=== PATIENT | female | born 1955 | race Caucasian/White ===

== ENCOUNTER 2017-02-21 11:19 | Observation (INO) | payer BC, MEDICARE ==
[2017-02-21 11:33] VITALS: TEMP 98.3; O2SAT 97
--- NOTE | 2017-02-21 13:11 | ED PDOC ---
HPI: General Adult Time Seen by Provider: 02/21/17 12:36 Chief Complaint (Nursing): GI Problem History Per: Patient History/Exam Limitations: no limitations Onset/Duration Of Symptoms: Sudden Onset (today) Current Symptoms Are (Timing): Better Severity: Moderate Additional History Per: Patient Additional Complaint(s): pmd tahir had brbpr Past Medical History Reviewed: Historical Data, Nursing Documentation, Vital Signs Vital Signs: Last Vital Signs Temp 98.3 F 02/21/17 11:33 Pulse 100 H 02/21/17 11:33 Resp 20 02/21/17 11:33 BP 140/83 02/21/17 11:33 Pulse Ox 97 02/21/17 13:13 - Medical History PMH: End Stage Renal Disease - Family History Family History: States: Unknown Family Hx - Living Arrangements Living Arrangements: With Family - Home Medications Home Medications: Ambulatory Orders Medication Instructions Recorded Allopurinol [Zyloprim] 100 mg PO DAILY 02/21/17 Alprazolam [Xanax] 0.25 mg PO Q12H PRN 02/21/17 Diltiazem HCl [Diltiazem ER] 120 mg PO DAILY 02/21/17 Esomeprazole Magnesium [Nexium] 40 mg PO DAILY PRN 02/21/17 Ferric Citrate [Auryxia] 2 tab PO TID 02/21/17 Labetalol [Trandate] 200 mg PO DAILY 02/21/17 Losartan [Cozaar] 100 mg PO QPM 02/21/17 Megestrol Acetate [Megace Es] 5 ml PO DAILY 02/21/17 [id number] Ethyl Esters 1 GM 2 gm PO BID 02/21/17 [Lovaza] Paricalcitol [Zemplar] 1 mcg PO DAILY 02/21/17 Promethazine HCl/Codeine 10 ml PO Q8H PRN 02/21/17 [Prometh-Codein 6.25-10 mg/5 ml] Rosuvastatin Calcium [Crestor] 5 mg PO Q48H 02/21/17 Sevelamer Carbonate [Renvela] 2,400 mg PO TID 02/21/17 - Allergies Allergies/Adverse Reactions: Allergies Allergy/AdvReac Type Severity Reaction Status Date / Time No Known Allergies Allergy Verified 02/21/17 12:44 Review of Systems ROS Statement: Except As Marked, All Systems Reviewed And Found Negative Constitutional: Negative for: Fever, Chills Cardiovascular: Negative for: Chest Pain, Palpitations Respiratory: Negative for: Cough, Shortness of Breath Gastrointestinal: Positive for: Hematochezia. Negative for: Nausea, Vomiting, Abdominal Pain, Melena Genitourinary Female: Negative for: Dysuria Neurological: Negative for: Weakness, Numbness Physical Exam - Reviewed Nursing Documentation Reviewed: Yes Vital Signs Reviewed: Yes - Physical Exam Appears: Positive for: Well Head Exam: Positive for: ATRAUMATIC, NORMAL INSPECTION, NORMOCEPHALIC Eye Exam: Positive for: Normal appearance, EOMI, PERRL Neck: Positive for: Normal, Painless ROM, Supple Cardiovascular/Chest: Positive for: Regular Rate, Rhythm Respiratory: Positive for: Normal Breath Sounds. Negative for: Decreased Breath Sounds, Accessory Muscle Use, Crackles Gastrointestinal/Abdominal: Positive for: Normal Exam, Bowel Sounds, Soft, Other (peritoneal dialysis catheter). Negative for: Tenderness Rectal: Positive for: Rectal Tone Is: (nml), Blood Streaked Stool Extremity: Positive for: Normal ROM. Negative for: Tenderness, Pedal Edema Neurologic/Psych: Positive for: Alert, reclamation kettle tender II-XII, Oriented. Negative for: Motor/Sensory Deficits - Laboratory Results Result Diagrams: 02/21/17 13:15 02/21/17 13:15 - ECG O2 Sat by Pulse Oximetry: 97 Disposition - Clinical Impression Clinical Impression: GI bleed - Patient ED Disposition Is Patient to be Admitted: Yes Counseled Patient/Family Regarding: Studies Performed, Diagnosis - Disposition Disposition Time: 14:00 Condition: STABLE - Pt Status Changed To: Hospital Disposition Of: Observation - POA Present On Arrival: None
[2017-02-21 13:33] LABS: BASO # 0.1 K/uL (0.0-0.2); BASO % 0.8 % (0.0-2.0); EOS # 0.2 K/uL (0.0-0.7); EOS % 2.1 % (0.0-4.0); HEMOGLOBIN 8.4 g/dL (12.0-16.0); LYMPH # 3.6 K/uL (1.0-4.3); LYMPH % 36.2 % (20.0-40.0); MEAN CELL VOLUME 98.7 fl (81.0-99.0); MEAN CORPUSCULAR HEMOGLOBIN 32.3 pg (27.0-31.0); MEAN CORPUSCULAR HGB CONC 32.7 g/dL (33.0-37.0); MEAN PLATELET VOLUME 7.7 fl (7.2-11.7); MONO % 10.2 % (0.0-10.0); NEUT % 50.7 % (50.0-75.0); RBC 2.61 Mil/uL (3.80-5.20); RED CELL DISTRIBUTION WIDTH 15.2 % (11.5-14.5); WHITE BLOOD COUNT 9.9 K/uL (4.8-10.8)
[2017-02-21 13:47] LABS: ALB/GLOB RATIO 1.4 (1.0-2.1); ALBUMIN 3.8 g/dL (3.5-5.0); CALCIUM 9.4 mg/dL (8.4-10.2)
[2017-02-21 13:54] LABS: INR 1.1 (0.9-1.2); PARTIAL THROMBOPLASTIN TIME 24.6 Seconds (25.6-37.1); PROTHROMBIN TIME 12.7 Seconds (9.8-13.1)
[2017-02-21 15:24] VITALS: BP 136/75; PULSE 88; RESP 16
== END 2017-02-21 15:32 | disposition left against medical advice (07) ==
LOC: H.ER 11:19 → H.ERHOLD 14:22
PROVIDERS: ADMIT Internal Medicine Pulmonary Disease; ATTEND Internal Medicine Pulmonary Disease
DX: K92.2 Gastrointestinal hemorrhage, unspecified (principal); N18.6 End stage renal disease
CPT/HCPCS: 80053; 85025; 85610; 85730; 86850; 86900; 99284; G0378

== ENCOUNTER 2017-08-29 15:09 | Inpatient (IN) | payer BC, MEDICARE ==
[2017-08-29] MEDS ORDERED: Albuterol 0.083% Inhal Sol (2.5 mg/3 mL) UD INH STA (16:01)
[2017-08-29 16:34] LABS: BASO # 0.1 K/uL (0.0-0.2); BASO % 1.1 % (0.0-2.0); EOS # 0.2 K/uL (0.0-0.7); EOS % 2.1 % (0.0-4.0); LYMPH # 2.5 K/uL (1.0-4.3); MEAN CELL VOLUME 113.4 fl (81.0-99.0); MEAN CORPUSCULAR HEMOGLOBIN 37.6 pg (27.0-31.0); MEAN CORPUSCULAR HGB CONC 33.2 g/dL (33.0-37.0); MEAN PLATELET VOLUME 8.6 fl (7.2-11.7); MONO % 9.7 % (0.0-10.0); NEUT # 6.9 K/uL (1.8-7.0); NEUT % 64.1 % (50.0-75.0); NRBC % 0.1 % (0.0-0.0); RBC 1.86 Mil/uL (3.80-5.20); RED CELL DISTRIBUTION WIDTH 16.1 % (11.5-14.5); WHITE BLOOD COUNT 10.8 K/uL (4.8-10.8)
--- NOTE | 2017-08-29 16:34 | ED PDOC ---
HPI: SOB/CHF/COPD Time Seen by Provider: 08/29/17 15:35 Chief Complaint (Nursing): Shortness Of Breath History Per: Patient, Family (This is 62 yo female who is referred to the ER by Dr. Chamberlain because of persistent cough. According to her with daughter, she has been having persistent for as long as one year. There is no reports of fever or chills or production of phlegm. The cough does not appear to be related to position or fever. ) History/Exam Limitations: no limitations Onset/Duration Of Symptoms: Gradual Current Symptoms Are (Timing): Still Present Quality: Tightness Exacerbating Factor(s): Exertion Current Respiratory Medications: See Home Med List Past Medical History Reviewed: Historical Data, Nursing Documentation, Vital Signs - Medical History PMH: Asthma, HTN, End Stage Renal Disease (on peritoneal dialysis) - Surgical History Other surgeries: breast reduction, family donated transplant recipient - Family History Family History: States: No Known Family Hx - Living Arrangements Living Arrangements: With Family - Social History Current smoker - smoking cessation education provided: No Ex-Smoker (has not smoked in the last 12 months): No Alcohol: None Drugs: Denies - Immunization History Hx Influenza Vaccination: Yes Hx Pneumococcal Vaccination: Yes - Home Medications Home Medications: Ambulatory Orders Medication Instructions Recorded Allopurinol [Zyloprim] 100 mg PO DAILY 02/21/17 Alprazolam [Xanax] 0.25 mg PO Q12H PRN 02/21/17 Diltiazem HCl [Diltiazem ER] 120 mg PO DAILY 02/21/17 Esomeprazole Magnesium [Nexium] 40 mg PO DAILY PRN 02/21/17 Ferric Citrate [Auryxia] 2 tab PO TID 02/21/17 Labetalol [Trandate] 200 mg PO DAILY 02/21/17 Losartan [Cozaar] 100 mg PO QPM 02/21/17 Megestrol Acetate [Megace Es] 5 ml PO DAILY 02/21/17 [id number] Ethyl Esters 1 GM 2 gm PO BID 02/21/17 [Lovaza] Paricalcitol [Zemplar] 1 mcg PO DAILY 02/21/17 Promethazine HCl/Codeine 10 ml PO Q8H PRN 02/21/17 [Prometh-Codein 6.25-10 mg/5 ml] Rosuvastatin Calcium [Crestor] 5 mg PO Q48H 02/21/17 Sevelamer Carbonate [Renvela] 2,400 mg PO TID 02/21/17 - Allergies Allergies/Adverse Reactions: Allergies Allergy/AdvReac Type Severity Reaction Status Date / Time No Known Allergies Allergy Verified 08/11/17 17:40 Review of Systems ROS Statement: Except As Marked, All Systems Reviewed And Found Negative Constitutional: Positive for: Malaise. Negative for: Fever Cardiovascular: Negative for: Chest Pain Respiratory: Positive for: Cough, Shortness of Breath, SOB with Exertion, Pleuritic Pain. Negative for: Hemoptysis Gastrointestinal: Negative for: Nausea, Vomiting, Abdominal Pain Genitourinary Female: Negative for: Dysuria Neurological: Positive for: Weakness (genralized) Physical Exam - Reviewed Nursing Documentation Reviewed: Yes Vital Signs Reviewed: Yes - Physical Exam Appears: Positive for: Well, Non-toxic, No Acute Distress Head Exam: Positive for: ATRAUMATIC, NORMAL INSPECTION, NORMOCEPHALIC Skin: Positive for: Normal Color Eye Exam: Positive for: Normal appearance ENT: Positive for: Normal ENT Inspection Neck: Positive for: Normal, Painless ROM Cardiovascular/Chest: Positive for: Regular Rate, Rhythm Respiratory: Positive for: Normal Breath Sounds (coughing at the end of deep inspiration). Negative for: Accessory Muscle Use, Respiratory Distress Gastrointestinal/Abdominal: Positive for: Normal Exam, Soft. Negative for: Tenderness Back: Positive for: Normal Inspection Rectal: Positive for: Deferred Extremity: Positive for: Normal ROM Neurologic/Psych: Positive for: Alert, Oriented - Laboratory Results Result Diagrams: 08/29/17 16:25 08/29/17 16:25 - Radiology X-Ray: Viewed By Me, Read By Radiologist X-Ray Interpretation: Infiltrates (RLL) - Progress Re-evaluation Time: 17:59 Condition: Re-examined Medical Decision Making Medical Decision Making: patient found to have more significant anemia, RLL infiltrate and suggestion of fluid overload based on elevated ProBNP. case d/w PMD who states that patient was referred to the ER two weeks ago. BAsed on her findings of pneumonia, will admit patient to hospital for IV antibiotics. Disposition - Clinical Impression Clinical Impression: Pneumonia, Anemia - Patient ED Disposition Is Patient to be Admitted: Yes Doctor Will See Patient In The: Hospital - Disposition Disposition: Transfer of Care Disposition Time: 17:45 Condition: FAIR Forms: [facility] ([place]yan) - Pt Status Changed To: Hospital Disposition Of: Inpatient - Admit Certification Admit to Inpatient:: After my assessment, the patient will require hospitalization for at least two midnights. This is because of the severity of symptoms shown, intensity of services needed, and/or the medical risk in this patient being treated as an outpatient. - POA Present On Arrival: None
[2017-08-29 16:53] LABS: TROPONIN I 0.046 ng/mL (0.00-0.120)
--- NOTE | 2017-08-29 17:10 | RAD ---
HISTORY: cough, short of breath COMPARISON: [id number] TECHNIQUE: Chest PA and lateral FINDINGS: LUNGS: Right lower lobe infiltrate with air bronchograms. Findings likely represent acute pneumonia. PLEURA: No significant pleural effusion identified. No pneumothorax apparent. CARDIOVASCULAR: No radiographic findings to suggest acute or significant cardiovascular disease. OSSEOUS STRUCTURES: No significant abnormalities. VISUALIZED UPPER ABDOMEN: Normal. OTHER FINDINGS: None. IMPRESSION: Right lower lobe infiltrate likely pneumonia. This finding was not apparent previously.
[2017-08-29 17:15] LABS: ALB/GLOB RATIO 1.1 (1.0-2.1); ALBUMIN 3.7 g/dL (3.5-5.0); CALCIUM 10.2 mg/dL (8.4-10.2)
[2017-08-29] MEDS ORDERED: Azithromycin 500 MG in Sodium Chloride 0.9% 250 ML IVPB STA (17:57)
[2017-08-29] MEDS ORDERED: cefTRIAXone IV 1 gm in Dextros 50 ML IVPB ONE (18:30)
[2017-08-29] MEDS ORDERED: Oxycodone/Acetaminophen 5/325 mg Tab PO PRN (22:35)
[2017-08-29] MEDS: EPOETIN ALFA 10,000 UNIT/ML ML SC SCH (23:01)
[2017-08-30] MEDS: Promethazine/Cod 6.25mg-10mg/5ml Syr UD PO PRN ×2 (00:15→20:26)
[2017-08-30 07:46] LABS: BASO % 0.2 % (0.0-2.0); LYMPH # 1.2 K/uL (1.0-4.3); LYMPH % 15.6 % (20.0-40.0); MEAN CELL VOLUME 112.8 fl (81.0-99.0); MEAN CORPUSCULAR HEMOGLOBIN 37.6 pg (27.0-31.0); MEAN CORPUSCULAR HGB CONC 33.3 g/dL (33.0-37.0); MEAN PLATELET VOLUME 8.8 fl (7.2-11.7); MONO # 0.1 K/uL (0.0-0.8); MONO % 1.7 % (0.0-10.0); NEUT # 6.2 K/uL (1.8-7.0); NEUT % 82.5 % (50.0-75.0); NRBC % 0.1 % (0.0-0.0); RBC 1.72 Mil/uL (3.80-5.20); RED CELL DISTRIBUTION WIDTH 15.7 % (11.5-14.5); WHITE BLOOD COUNT 7.5 K/uL (4.8-10.8)
[2017-08-30 08:20] LABS: HEMOGLOBIN 6.5 g/dL (12.0-16.0)
[2017-08-30 08:32] LABS: CALCIUM 10.4 mg/dL (8.4-10.2)
[2017-08-30] MEDS: Pantoprazole 40 mg EC Tab PO SCH (08:51)
[2017-08-30] MEDS: Omega-3-Acid Ethyl Esters 1 GM Cap PO SCH ×2 (08:51→17:01)
[2017-08-30] MEDS: diltiaZEM 120 mg/24 Hours CD Cap PO SCH (08:52)
[2017-08-30] MEDS: Multivitamin Vitamin B Complex (Nephro-Vite) Tab PO SCH (08:52)
[2017-08-30] MEDS ORDERED: DILTIAZEM HCL 120 MG PO SCH (09:00)
[2017-08-30 11:05] LABS: BASO % 0.1 % (0.0-2.0); HEMOGLOBIN 6.9 g/dL (12.0-16.0); LYMPH # 1.3 K/uL (1.0-4.3); LYMPH % 13.1 % (20.0-40.0); MEAN CELL VOLUME 112.3 fl (81.0-99.0); MEAN CORPUSCULAR HEMOGLOBIN 38.1 pg (27.0-31.0); MEAN CORPUSCULAR HGB CONC 33.9 g/dL (33.0-37.0); MEAN PLATELET VOLUME 8.3 fl (7.2-11.7); MONO # 0.2 K/uL (0.0-0.8); MONO % 2.4 % (0.0-10.0); NEUT # 8.1 K/uL (1.8-7.0); NEUT % 84.4 % (50.0-75.0); NRBC % 0.1 % (0.0-0.0); RBC 1.8 Mil/uL (3.80-5.20); RED CELL DISTRIBUTION WIDTH 15.5 % (11.5-14.5); WHITE BLOOD COUNT 9.6 K/uL (4.8-10.8)
[2017-08-30 11:19] LABS: IRON 147 ug/dL (37-170)
[2017-08-30 11:28] LABS: TOTAL IRON BINDING CAPACITY 211 ug/dL (250-450)
[2017-08-30 11:35] LABS: % IRON SATURATION 70 % (20-55)
[2017-08-30] MEDS: Azithromycin 500 MG in Sodium Chloride 0.9% 250 ML IVPB SCH (11:54)
--- NOTE | 2017-08-30 12:06 | CARD ---
APPROVED REPORT EKG Measurement Heart [id number] <Conclusion> Too much artefact Please repeat
--- NOTE | 2017-08-30 12:40 | HP ---
HISTORY OF PRESENT ILLNESS: Ms. Roberts is a 62-year-old female who was admitted via the emergency room because of cough, back pain, shortness of breath, exercise intolerance for the past several weeks prior to presentation. She was seen in the office about two and a half weeks ago, referred to the emergency room, but did not show up. She had been to [facility] for similar conditions following a fall with severe back pains and cough, was discharged home after all workup was nonrevealing. She continued to feel very shaky and having exercise intolerance, some difficulty breathing and persistent cough. She has had a history of cough for the past several years, but it has worsened recently. PAST MEDICAL HISTORY: Remarkable for end-stage renal failure, status post renal transplantation. She is on peritoneal dialysis at home. She also has a history of asthma, hypertension that is poorly controlled, gastritis. FAMILY HISTORY: Nonrevealing. SOCIAL HISTORY: She is an ex-smoker. Does not drink. Does not use drugs. Lives at home with the . REVIEW OF SYSTEMS: Essentially remarkable for some anxiety, back pains and cough with shortness of breath. PHYSICAL EXAMINATION: GENERAL: The patient is alert and oriented. VITAL SIGNS: Blood pressure 134/79, pulse is 99, respiratory rate is 20, she is afebrile, O2 sat 95% on room air. SKIN: Shows fair turgor. HEENT: Pupils equal and reactive to light and accommodation. Mouth shows fair hygiene. NECK: JVP flat. LUNGS: Fair aeration bilaterally with scattered bilateral rales. HEART: Regular. BREASTS: Normal. ABDOMEN: Soft, nontender. No organomegaly. EXTREMITIES: Show 1+ pitting pedal edema. CENTRAL NERVOUS SYSTEM: Grossly intact. LABORATORY DATA: WBC 9.6, hemoglobin 6.9, platelet count of 255,000. Sodium 136, potassium 5.0, BUN 86, creatinine 12.8, glucose 260, proBNP 15,900. Chest x-ray: Right lower lobe infiltrate with air bronchograms, probably representing pneumonia. EKG: Accelerated junctional rhythm with premature ventricular complexes, fusion of complexes, ST elevation. Consider early repolarization, pericardial injury, ST-T wave abnormality. Consider lateral ischemia. IMPRESSION: Pneumonia, right lung; end-stage renal failure, on peritoneal dialysis; hypertension; abnormal electrocardiogram, probably secondary to pericardial disease, baseline artifact cannot be excluded. Severe anemia, probably secondary to renal failure. History of asthma, history of gastritis. PLAN: Intravenous antibiotic. Nephrology followup. We would probably obtain cardiac evaluation. Analgesics for pain. Aerosolized bronchodilators. Transfusion of packed red blood cells. This was attempted already twice and the patient refused. She will talk to her net front end developer before consenting to transfusion of packed blood cells because she indicates she is waiting for kidney transplantation and transfusions are contraindicated. We will continue therapy as ordered. Yao Chamberlain MD
--- NOTE | 2017-08-30 15:27 | CP.PCM.CON ---
History of Present Illness - History of Present Illness History of Present Illness: I was asked to see patietn by Dr Chamberlain. Patient is a 62 year old female with a history of renal failure currently on peritoneal dailysis who presents with weakness. The patient had a stress test for preoperative cardiovascular evaluation prior to kidney transplant surgery. There was no evidence of myocardial ischemia. The patient has complained of progressive weakness. She has also felt lightheaded. The patient was found to be anemic with a Hgb 7. Review of Systems - Constitutional Constitutional: Weakness - EENT Eyes: absent: As Per HPI, Blind Spots, Blurred Vision, Change in Vision, Decreased Night Vision, Diplopia, Discharge, Dry Eye, Exophthalmos, Floaters, Irritation, Itchy Eyes, Loss of Peripheral Vision, Pain, Photophobia, Requires Corrective Lenses, Sees Flashes, Spots in Vision, Tunnel Vision, Other Visual Disturbances, Loss of Vision, Other Ears: absent: As Per HPI, Decreased Hearing, Ear Discharge, Ear Pain, Tinnitus, Abnormal Hearing, Disequilibrium, Dizziness, Other Nose/Mouth/Throat: absent: As Per HPI, Epistaxis, Nasal Congestion, Nasal Discharge, Nasal Obstruction, Nasal Trauma, Nose Pain, Post Nasal Drip, Sinus Pain, Sinus Pressure, Bleeding Gums, Change in Voice, Dental Pain, Dry Mouth, Dysphagia, Halitosis, Hoarsness, Lip Swelling, Mouth Lesions, Mouth Pain, Odynophagia, Sore Throat, Throat Swelling, Tongue Swelling, Facial Pain, Neck Pain, Neck Mass, Other - Cardiovascular Cardiovascular: absent: As Per HPI, Acrocyanosis, Chest Pain, Chest Pain at Rest , Chest Pain with Activity, Claudication, Diaphoresis, Dyspnea, Dyspnea on Exertion, Edema, Irregular Heart Rhythm, Pain Radiating to Arm/Neck/Jaw, Leg Edema, Leg Ulcers, Lightheadedness, Orthopnea, Palpitations, Paroxysmal Nocturnal Dyspnea, Pedal Edema, Radiating Pain, Rapid Heart Rate, Slow Heart Rate, Syncope, Other - Respiratory Respiratory: absent: As Per HPI, Cough, Dyspnea, Hemoptysis, Dyspnea on Exertion , Wheezing, Snoring, Stridor, Pain on Inspiration, Chest Congestion, Excessive Mucous Production, Change in Mucous Color, Pain with Coughing, Other - Gastrointestinal Gastrointestinal: absent: As Per HPI, Abdominal Pain, Belching, Bloating, Change in Bowel Habits, Change in Stool Character, Coffee Ground Emesis, Constipation, Cramping, Diarrhea, Dyspepsia, Dysphagia, Early Satiety, Excessive Flatus, Fecal Incontinence, Heartburn, Hematemesis, Hematochezia, Loose Stools, Melena, Nausea, Odynophagia, Temesmus, Vomiting, Other - Genitourinary Genitourinary: absent: As Per HPI, Change in Urinary Stream, Difficulty Urinating, Dysuria, Flank Pain, Hematuria, Pyuria, Nocturia, Urinary Incontinence, Urinary Frequency, Urinary Hesitance, Urinary Urgency, Voiding Freq/Small Amts, Freq UTI, Hx Renal/Bladder Calculi, Hx /Renal Surgery, Bladder Distension, Other - Musculoskeletal Musculoskeletal: absent: As Per HPI, Abnormal Gait, Arthralgias, Atrophy, Back Pain, Deformity, Joint Swelling, Limited Range of Motion, Loss of Height, Muscle Cramps, Muscle Weakness, Myalgias, Neck Pain, Numbness, Radiating Pain into Limb, Stiffness, Tingling, Other - Integumentary Integumentary: absent: As Per HPI, Acne, Alopecia, Bleeding Lesions, Change in Hair, Change in Nails, Change in Pigmentation, Changing Lesions, Dry Skin, Erythema, Furuncle, Hirsutism, Lesions, New Lesions, Non-Healing Lesions, Photosensitivity, Pruritus, Rash, Skin Pain, Skin Ulcer, Sores, Striae, Swelling , Unusual Bruising, Wounds, Jaundice, Other - Neurological Neurological: absent: As Per HPI, Abnormal Gait, Abnormal Hearing, Abnormal Movements, Abnormal Speech, Behavioral Changes, Burning Sensations, Confusion, Convulsions, Disequilibrium, Dizziness, Numbness, Focal Weakness, Frequent Falls , Headaches, Lack of Coordination, Loss of Vision, Memory Loss, Paresthesias, Radicular Pain, Restless Legs, Sensory Deficit, Syncope, Tingling, Tremor, Vertigo, Weakness, Other Visual Disturbances, Other - Psychiatric Psychiatric: absent: As Per HPI, Abnormal Sleep Pattern, Anhedonia, Anxiety, Auditory Hallucinations, Behavioral Changes, Change in Appetite, Change in Libido, Confusion, Depression, Difficulty Concentrating, Hallucinations, Homicidal Ideation, Hopelessness, Irritability, Memory Loss, Mood Swings, Panic Attacks, Paranoia, Suicidal Ideation, Visual Hallucinations, Tactile Hallucinations, Other - Endocrine Endocrine: absent: As Per HPI, Change in Body Appearance, Change in Libido, Cold Intolorance, Deepening of Voice, Excessive Sweating, Fatigue, Flushing, Heat Intolorance, Increase in Ring/Shoe/Hat Size, Palpitations, Polydipsia, Polyphagia, Polyuria, Other - Hematologic/Lymphatic Hematologic: absent: As Per HPI, Easy Bleeding, Easy Bruising, Lymphadenopathy, Other Past Patient History - Infectious Disease Hx of Infectious Diseases: None - Past Medical History & Family History Past Medical History?: Yes - Past Social History Smoking Status: Never Smoked - CARDIAC Hx Hypertension: Yes - PULMONARY Hx Asthma: Yes - RENAL Hx Dialysis: Yes Type of Dialysis Access: peritoneal dialysis Date of Last Dialysis Treatment: 08/30/17 - MUSCULOSKELETAL/RHEUMATOLOGICAL Hx Falls: No - PSYCHIATRIC Hx Substance Use: No - SURGICAL HISTORY Hx Surgeries: Yes Hx Cholecystectomy: Yes Hx Vascular Access Device: Yes - ANESTHESIA Hx Anesthesia: Yes Hx Anesthesia Reactions: No Meds Allergies/Adverse Reactions: Allergies Allergy/AdvReac Type Severity Reaction Status Date / Time No Known Allergies Allergy Verified 08/11/17 17:40 - Medications Medications: Current Medications Acetaminophen (Tylenol 325mg Tab) 650 mg PO Q4 PRN PRN Reason: Flu symptoms Albuterol/Ipratropium (Duoneb 3 Mg/0.5 Mg (3 Ml) Ud) 3 ml INH RQ6 PRN PRN Reason: Shortness of Breath Allopurinol (Zyloprim) 100 mg PO DAILY [facility] Last Admin: 08/30/17 08:51 Dose: 100 mg Alprazolam (Xanax) 0.25 mg PO Q12H PRN PRN Reason: Anxiety Stop: 09/05/17 22:46 Atorvastatin Calcium (Lipitor) 10 mg PO DAILY [facility] Last Admin: 08/30/17 08:51 Dose: 10 mg Diltiazem HCl (Cardizem Cd) 120 mg PO DAILY [facility] Last Admin: 08/30/17 08:52 Dose: 120 mg Epoetin Collin (Procrit) 10,000 unit SC MWF [facility] Last Admin: 08/29/17 23:01 Dose: 10,000 unit Azithromycin 500 mg/ Sodium (Chloride) 250 mls @ 250 mls/hr IVPB DAILY [facility] PRN Reason: Protocol Last Admin: 08/30/17 11:54 Dose: 250 mls/hr Ceftriaxone Sodium 1 gm/ (Sodium Chloride) 100 mls @ 100 mls/hr IVPB DAILY [facility] PRN Reason: Protocol Last Admin: 08/30/17 11:54 Dose: 100 mls/hr Labetalol HCl (Trandate) 200 mg PO DAILY [facility] Last Admin: 08/30/17 08:52 Dose: 200 mg Losartan Potassium (Cozaar) 100 mg PO QPM [facility] Xeuvv-3-Pves Ethyl Esters (Lovaza) 2 gm PO BID [facility] Last Admin: 08/30/17 08:51 Dose: 2 gm Oxycodone/Acetaminophen (Percocet 5/325 Mg Tab) 1 tab PO Q6 PRN PRN Reason: Pain, moderate (4-7) Stop: 09/01/17 22:36 Pantoprazole Sodium (Protonix Ec Tab) 40 mg PO DAILY [facility] Last Admin: 08/30/17 08:51 Dose: 40 mg Promethazine HCl/Codeine (Phenergan/Codeine Oral Syrup) 10 ml PO Q6 PRN PRN Reason: Cough Last Admin: 08/30/17 00:15 Dose: 10 ml Sevelamer HCl (Renagel) 2,400 mg PO TID [facility] Last Admin: 08/30/17 13:00 Dose: 2,400 mg Vitamin B Complex/Vit C/Folic Acid (Nephro-Graciela) 1 tab PO DAILY [facility] Last Admin: 08/30/17 08:52 Dose: 1 tab Physical Exam - Constitutional Appears: Non-toxic - Head Exam Head Exam: NORMAL INSPECTION - Eye Exam Eye Exam: Normal appearance - ENT Exam ENT Exam: Mucous Membranes Moist - Neck Exam Neck exam: Positive for: Full Rom - Respiratory Exam Respiratory Exam: Decreased Breath Sounds - Cardiovascular Exam Cardiovascular Exam: REGULAR RHYTHM - GI/Abdominal Exam GI & Abdominal Exam: Normal Bowel Sounds - Rectal Exam Rectal Exam: Deferred - Extremities Exam Extremities exam: Negative for: pedal edema - Back Exam Back exam: NORMAL INSPECTION - Neurological Exam Neurological exam: Alert, Oriented x3 - Psychiatric Exam Psychiatric exam: Normal Affect - Skin Skin Exam: Normal Color Results - Vital Signs Recent Vital Signs: Last Vital Signs Temp 98.6 F 08/30/17 08:18 Pulse 99 H 08/30/17 08:52 Resp 20 08/30/17 08:18 BP 134/79 08/30/17 08:52 Pulse Ox 95 08/30/17 08:18 - Labs Result Diagrams: 08/31/17 07:20 08/31/17 07:20 Labs: Laboratory Results - last 24 hr 08/29/17 08/29/17 08/29/17 16:25 16:25 18:13 WBC 10.8 RBC 1.86 L Hgb 7.0 L Hct 21.1 L MCV 113.4 H D MCH 37.6 H MCHC 33.2 RDW 16.1 H Plt Count 264 D MPV 8.6 Neut % (Auto) 64.1 Lymph % (Auto) 23.0 Wetzel % (Auto) 9.7 Eos % (Auto) 2.1 Baso % (Auto) 1.1 Neut # 6.9 Lymph # 2.5 Wetzel # 1.0 H Eos # 0.2 Baso # 0.1 Retic Count Sodium 134 Potassium 4.7 Chloride 95 L Carbon Dioxide 24 Anion Gap 20 BUN 80 H Creatinine 12.1 H* Est GFR ( Amer) 4 Est GFR (Non-Af Amer) 3 Random Glucose 108 H Calcium 10.2 Phosphorus Iron TIBC % Saturation Ferritin Total Bilirubin 0.5 AST 34 ALT 49 Alkaline Phosphatase 54 Troponin I 0.0460 NT-Pro-B Natriuret Pep 87184 H Total Protein 7.1 Albumin 3.7 Globulin 3.4 Albumin/Globulin Ratio 1.1 Vitamin B12 Blood Type O POSITIVE Antibody Screen Negative Crossmatch See Detail BBK History Checked Patient has bt 08/30/17 08/30/17 08/30/17 05:30 05:30 10:00 WBC 7.5 9.6 RBC 1.72 L 1.80 L Hgb 6.5 L* 6.9 L Hct 19.4 L 20.3 L MCV 112.8 H 112.3 H MCH 37.6 H 38.1 H MCHC 33.3 33.9 RDW 15.7 H 15.5 H Plt Count 222 255 MPV 8.8 8.3 Neut % (Auto) 82.5 H 84.4 H Lymph % (Auto) 15.6 L 13.1 L Wetzel % (Auto) 1.7 2.4 Eos % (Auto) 0.0 0.0 Baso % (Auto) 0.2 0.1 Neut # 6.2 8.1 H Lymph # 1.2 1.3 Wetzel # 0.1 0.2 Eos # 0.0 0.0 Baso # 0.0 0.0 Retic Count 3.3 H Sodium 136 Potassium 5.0 Chloride 94 L Carbon Dioxide 26 Anion Gap 21 H BUN 86 H Creatinine 12.8 H* Est GFR ( Amer) 4 Est GFR (Non-Af Amer) 3 Random Glucose 260 H Calcium 10.4 H Phosphorus 6.1 H Iron TIBC % Saturation Ferritin Total Bilirubin AST ALT Alkaline Phosphatase Troponin I NT-Pro-B Natriuret Pep Total Protein Albumin Globulin Albumin/Globulin Ratio Vitamin B12 Blood Type Antibody Screen Crossmatch BBK History Checked 08/30/17 08/30/17 10:00 10:00 WBC RBC Hgb Hct MCV MCH MCHC RDW Plt Count MPV Neut % (Auto) Lymph % (Auto) Wetzel % (Auto) Eos % (Auto) Baso % (Auto) Neut # Lymph # Wetzel # Eos # Baso # Retic Count Sodium Potassium Chloride Carbon Dioxide Anion Gap BUN Creatinine Est GFR ( Amer) Est GFR (Non-Af Amer) Random Glucose Calcium Phosphorus Iron 147 TIBC 211 L % Saturation 70 H Ferritin 1470.0 H Total Bilirubin AST ALT Alkaline Phosphatase Troponin I NT-Pro-B Natriuret Pep Total Protein Albumin Globulin Albumin/Globulin Ratio Vitamin B12 979 H Blood Type Antibody Screen Crossmatch BBK History Checked - EKG Data EKG Interpreted by: Myself EKG shows normal: Sinus rhythm Assessment & Plan (1) Anemia Assessment and Plan: pateint has normal left ventricular function and no evidence of myocardial ischemia by stress test. recommend transfusion Status: Acute
--- NOTE | 2017-08-30 17:23 | CP.PCM.CON ---
History of Present Illness - History of Present Illness History of Present Illness: Initial Nephrology Consultation: Assessment: Stable Pneumonia Hypertensive Chronic Kidney Disease (I12.0) End stage renal disease (N18.6) dependence on PD Acute on chronic macrocytic Anemia (D64.9), Hyperphosphatemia (E83.39), Secondary Hyperparathyroidism (E21.1), HTN (I12.0) Hypercalcemia Plan: continue with PD as per her outpt prescription. Continue with Nephrovite 1 tab/ day. PRBC 1 unit today as Hb 6.5. risks/benefits d/w patient and , they agreed for transfusion. added VALE as epogen 01085 three times a week, consider heme/GI eval for acute on chronic anemia and macrocytosis. ordered FOB, iron studies, retic count, SPEP/GRECIA and kappa/lambda. Continue with phos binders last phos level 6.1 check PTH level BP control with meds as ordered. Patient on RAAS andressa as losartan Glycemic control, Dialysis consistent diet Further work up/management as per primary team Dose meds/antibiotics (if needed) for ESRD status. Avoid fleets enema/magnesium based laxatives. Thanks for allowing me to participate in care of your patient. Will follow patient with you. Please call if any Qs Dr John Wagner Office: [phone] Chief Complaint;cough and SOB HPI: Pt is a 62 F with hx of ESRD s/p LRRT in 1988 which failed 2-3 years ago and pt now on APD, chronic anemia, hyperphosphatemia, secondary hyperparathyroidism, hypertension presented with complaints of worsening chronic cough and SOB which is being treated for pneumonia. also with acute on chronic anemia. Hb usually in 9-10 range and managed with Mircera as outpt, last inj 2-3 weeks ago. no obvious bleed reported. pt uses APD, daughter does the connection for her. usual UF is 1.2-1.3 L/night ROS: Cardiovascular: No chest pain. Pulmonary: c/o shortness of breath and cough Gastrointestinal: denies abdominal pain No nausea. No vomiting. Genitourinary: minimal urine All other negative Physical Examination: General Appearance: Comfortable, in no acute respiratory distress, co-operative . Vitals reviewed and noted as below Head; Atraumatic, normocephalic ENT: no ulcers no thrush. Tongue is midline. Oropharynx: no rash or ulcers. EYES: Pupils are equal, round and reactive to light accommodation. Eye muscles and extraocular movement intact. Sclera is anicteric. Neck; supple no lymphadenopathy, no thyromegaly or bruit Lungs: Normal respiratory rate/effort. Breath sounds bilateral equal and clear Heart: Normal rate. s1s2 normal. No rub or gallop. Extremities: no edema. No varicose veins Neurological: Patient is alert, awake and oriented to person, place and time. No focal deficit. Strength bilateral appropriate and equal Skin: Warm and dry. Normal turgor. No rash. Palpitation: Normal elasticity for age Abdomen: Abdomen is soft. Bowel sounds +. There is no abdominal tenderness, no guarding/rigidity or organomegaly Psych: normal insight and normal affect/mood MSK: no joint tenderness or swelling. Digits and nails normal, no deformity : kidney or bladder not palpable Access: PD catheter Labs/imaging reviewed. Past medical history, past surgical history, family history, social history, allergy reviewed and noted as below Family Hx: no hx of CKD. Non contributory Past Patient History - Infectious Disease Hx of Infectious Diseases: None - Past Medical History & Family History Past Medical History?: Yes - Past Social History Smoking Status: Never Smoked - CARDIAC Hx Hypertension: Yes - PULMONARY Hx Asthma: Yes - RENAL Hx Dialysis: Yes Type of Dialysis Access: peritoneal dialysis Date of Last Dialysis Treatment: 08/30/17 - MUSCULOSKELETAL/RHEUMATOLOGICAL Hx Falls: No - PSYCHIATRIC Hx Substance Use: No - SURGICAL HISTORY Hx Surgeries: Yes Hx Cholecystectomy: Yes Hx Vascular Access Device: Yes - ANESTHESIA Hx Anesthesia: Yes Hx Anesthesia Reactions: No Meds Allergies/Adverse Reactions: Allergies Allergy/AdvReac Type Severity Reaction Status Date / Time No Known Allergies Allergy Verified 08/11/17 17:40 - Medications Medications: Current Medications Acetaminophen (Tylenol 325mg Tab) 650 mg PO Q4 PRN PRN Reason: Flu symptoms Albuterol/Ipratropium (Duoneb 3 Mg/0.5 Mg (3 Ml) Ud) 3 ml INH RQ6 PRN PRN Reason: Shortness of Breath Allopurinol (Zyloprim) 100 mg PO DAILY [facility] Last Admin: 08/30/17 08:51 Dose: 100 mg Alprazolam (Xanax) 0.25 mg PO Q12H PRN PRN Reason: Anxiety Stop: 09/05/17 22:46 Atorvastatin Calcium (Lipitor) 10 mg PO DAILY [facility] Last Admin: 08/30/17 08:51 Dose: 10 mg Diltiazem HCl (Cardizem Cd) 120 mg PO DAILY [facility] Last Admin: 08/30/17 08:52 Dose: 120 mg Epoetin Collin (Procrit) 10,000 unit SC MWF [facility] Last Admin: 08/29/17 23:01 Dose: 10,000 unit Azithromycin 500 mg/ Sodium (Chloride) 250 mls @ 250 mls/hr IVPB DAILY [facility] PRN Reason: Protocol Last Admin: 08/30/17 11:54 Dose: 250 mls/hr Ceftriaxone Sodium 1 gm/ (Sodium Chloride) 100 mls @ 100 mls/hr IVPB DAILY [facility] PRN Reason: Protocol Last Admin: 08/30/17 11:54 Dose: 100 mls/hr Labetalol HCl (Trandate) 200 mg PO DAILY [facility] Last Admin: 08/30/17 08:52 Dose: 200 mg Losartan Potassium (Cozaar) 100 mg PO QPM [facility] [id number] Ethyl Esters (Lovaza) 2 gm PO BID [facility] Last Admin: 08/30/17 17:01 Dose: 2 gm Oxycodone/Acetaminophen (Percocet 5/325 Mg Tab) 1 tab PO Q6 PRN PRN Reason: Pain, moderate (4-7) Stop: 09/01/17 22:36 Pantoprazole Sodium (Protonix Ec Tab) 40 mg PO DAILY [facility] Last Admin: 08/30/17 08:51 Dose: 40 mg Promethazine HCl/Codeine (Phenergan/Codeine Oral Syrup) 10 ml PO Q6 PRN PRN Reason: Cough Last Admin: 08/30/17 00:15 Dose: 10 ml Sevelamer HCl (Renagel) 2,400 mg PO TID [facility] Last Admin: 08/30/17 17:01 Dose: 2,400 mg Vitamin B Complex/Vit C/Folic Acid (Nephro-Graciela) 1 tab PO DAILY [facility] Last Admin: 08/30/17 08:52 Dose: 1 tab Results - Vital Signs Recent Vital Signs: Last Vital Signs Temp 98.6 F 08/30/17 08:18 Pulse 99 H 08/30/17 08:52 Resp 20 08/30/17 08:18 BP 134/79 08/30/17 08:52 Pulse Ox 95 08/30/17 08:18 - Labs Result Diagrams: 08/30/17 10:00 08/30/17 05:30 Labs: Laboratory Results - last 24 hr 08/29/17 08/30/17 08/30/17 18:13 05:30 05:30 WBC 7.5 RBC 1.72 L Hgb 6.5 L* Hct 19.4 L MCV 112.8 H MCH 37.6 H MCHC 33.3 RDW 15.7 H Plt Count 222 MPV 8.8 Neut % (Auto) 82.5 H Lymph % (Auto) 15.6 L Pitkin % (Auto) 1.7 Eos % (Auto) 0.0 Baso % (Auto) 0.2 Neut # 6.2 Lymph # 1.2 Pitkin # 0.1 Eos # 0.0 Baso # 0.0 Retic Count Sodium 136 Potassium 5.0 Chloride 94 L Carbon Dioxide 26 Anion Gap 21 H BUN 86 H Creatinine 12.8 H* Est GFR ( Amer) 4 Est GFR (Non-Af Amer) 3 Random Glucose 260 H Calcium 10.4 H Phosphorus 6.1 H Iron TIBC % Saturation Ferritin Vitamin B12 Blood Type O POSITIVE Antibody Screen Negative Crossmatch See Detail BBK History Checked Patient has bt 08/30/17 08/30/17 08/30/17 10:00 10:00 10:00 WBC 9.6 RBC 1.80 L Hgb 6.9 L Hct 20.3 L MCV 112.3 H MCH 38.1 H MCHC 33.9 RDW 15.5 H Plt Count 255 MPV 8.3 Neut % (Auto) 84.4 H Lymph % (Auto) 13.1 L Pitkin % (Auto) 2.4 Eos % (Auto) 0.0 Baso % (Auto) 0.1 Neut # 8.1 H Lymph # 1.3 Pitkin # 0.2 Eos # 0.0 Baso # 0.0 Retic Count 3.3 H Sodium Potassium Chloride Carbon Dioxide Anion Gap BUN Creatinine Est GFR ( Amer) Est GFR (Non-Af Amer) Random Glucose Calcium Phosphorus Iron 147 TIBC 211 L % Saturation 70 H Ferritin 1470.0 H Vitamin B12 979 H Blood Type Antibody Screen Crossmatch BBK History Checked
[2017-08-30 22:45] LABS: FOLATE > 20.0 ng/mL
[2017-08-31 08:17] LABS: BASO % 0.2 % (0.0-2.0); HEMOGLOBIN 7.4 g/dL (12.0-16.0); MEAN CELL VOLUME 103.4 fl (81.0-99.0); MEAN CORPUSCULAR HEMOGLOBIN 34.5 pg (27.0-31.0); MEAN CORPUSCULAR HGB CONC 33.4 g/dL (33.0-37.0); MEAN PLATELET VOLUME 8.1 fl (7.2-11.7); MONO # 0.9 K/uL (0.0-0.8); MONO % 6.4 % (0.0-10.0); NEUT # 10.5 K/uL (1.8-7.0); NEUT % 78.4 % (50.0-75.0); NRBC % 0.1 % (0.0-0.0); RBC 2.15 Mil/uL (3.80-5.20); RED CELL DISTRIBUTION WIDTH 23.8 % (11.5-14.5); WHITE BLOOD COUNT 13.4 K/uL (4.8-10.8)
[2017-08-31 08:36] LABS: CALCIUM 9.8 mg/dL (8.4-10.2)
[2017-08-31] MEDS: diltiaZEM 120 mg/24 Hours CD Cap PO SCH (08:54)
[2017-08-31] MEDS: Pantoprazole 40 mg EC Tab PO SCH (08:54)
[2017-08-31] MEDS: Multivitamin Vitamin B Complex (Nephro-Vite) Tab PO SCH (08:54)
[2017-08-31] MEDS: Omega-3-Acid Ethyl Esters 1 GM Cap PO SCH ×2 (08:54→16:52)
[2017-08-31] MEDS: Azithromycin 500 MG in Sodium Chloride 0.9% 250 ML IVPB SCH (09:49)
--- NOTE | 2017-08-31 10:49 | CP.PCM.PN ---
Subjective - Date & Time of Evaluation Date of Evaluation: 08/31/17 Time of Evaluation: 10:49 - Subjective Subjective: COUGH LESS BACK PAIN IMPROVING NO FEVER/CHILLS Objective - Vital Signs/Intake and Output Vital Signs (last 24 hours): Temp Pulse Resp BP Pulse Ox 98.0 F 97 H 20 147/81 96 08/31/17 08:01 08/31/17 08:56 08/31/17 08:01 08/31/17 08:56 08/31/17 08:01 - Medications Medications: Current Medications Acetaminophen (Tylenol 325mg Tab) 650 mg PO Q4 PRN PRN Reason: Flu symptoms Albuterol/Ipratropium (Duoneb 3 Mg/0.5 Mg (3 Ml) Ud) 3 ml INH RQ6 PRN PRN Reason: Shortness of Breath Allopurinol (Zyloprim) 100 mg PO DAILY [facility] Last Admin: 08/31/17 08:54 Dose: 100 mg Alprazolam (Xanax) 0.25 mg PO Q12H PRN PRN Reason: Anxiety Stop: 09/05/17 22:46 Atorvastatin Calcium (Lipitor) 10 mg PO DAILY [facility] Last Admin: 08/31/17 08:55 Dose: 10 mg Diltiazem HCl (Cardizem Cd) 120 mg PO DAILY [facility] Last Admin: 08/31/17 08:54 Dose: 120 mg Epoetin Collin (Procrit) 10,000 unit SC MWF [facility] Last Admin: 08/29/17 23:01 Dose: 10,000 unit Azithromycin 500 mg/ Sodium (Chloride) 250 mls @ 250 mls/hr IVPB DAILY [facility] PRN Reason: Protocol Last Admin: 08/31/17 09:49 Dose: 250 mls/hr Ceftriaxone Sodium 1 gm/ (Sodium Chloride) 100 mls @ 100 mls/hr IVPB DAILY [facility] PRN Reason: Protocol Last Admin: 08/31/17 08:55 Dose: 100 mls/hr Labetalol HCl (Trandate) 200 mg PO DAILY [facility] Last Admin: 08/31/17 08:56 Dose: 200 mg Lanthanum Carbonate (Fosrenol) 500 mg PO TIDWM [facility] Losartan Potassium (Cozaar) 100 mg PO QPM [facility] Last Admin: 08/30/17 20:25 Dose: 100 mg Kiuoe-7-Vjua Ethyl Esters (Lovaza) 2 gm PO BID [facility] Last Admin: 08/31/17 08:54 Dose: 2 gm Oxycodone/Acetaminophen (Percocet 5/325 Mg Tab) 1 tab PO Q6 PRN PRN Reason: Pain, moderate (4-7) Stop: 09/01/17 22:36 Pantoprazole Sodium (Protonix Ec Tab) 40 mg PO DAILY [facility] Last Admin: 08/31/17 08:54 Dose: 40 mg Promethazine HCl/Codeine (Phenergan/Codeine Oral Syrup) 10 ml PO Q6 PRN PRN Reason: Cough Last Admin: 08/30/17 20:26 Dose: 10 ml Sevelamer HCl (Renagel) 2,400 mg PO TID [facility] Last Admin: 08/31/17 08:54 Dose: 2,400 mg Vitamin B Complex/Vit C/Folic Acid (Nephro-Graciela) 1 tab PO DAILY [facility] Last Admin: 08/31/17 08:54 Dose: 1 tab - Labs Labs: 08/31/17 07:20 08/31/17 07:20 - Constitutional Appears: No Acute Distress - Head Exam Head Exam: ATRAUMATIC, NORMAL INSPECTION, NORMOCEPHALIC - Eye Exam Eye Exam: EOMI, Normal appearance, PERRL Pupil Exam: NORMAL ACCOMODATION, PERRL - ENT Exam ENT Exam: Mucous Membranes Moist, Normal Exam - Neck Exam Neck Exam: Full ROM, Normal Inspection. absent: Lymphadenopathy - Respiratory Exam Respiratory Exam: Clear to Ausculation Bilateral, Rales, NORMAL BREATHING PATTERN - Cardiovascular Exam Cardiovascular Exam: REGULAR RHYTHM, +S1, +S2. absent: Murmur - GI/Abdominal Exam GI & Abdominal Exam: Soft, Normal Bowel Sounds. absent: Tenderness - Rectal Exam Rectal Exam: NORMAL INSPECTION - Extremities Exam Extremities Exam: Full ROM, Normal Capillary Refill, Normal Inspection. absent : Joint Swelling, Pedal Edema - Back Exam Back Exam: NORMAL INSPECTION - Neurological Exam Neurological Exam: Alert, Awake, CN II-XII Intact, Normal Gait, Oriented x3 - Psychiatric Exam Psychiatric exam: Normal Affect, Normal Mood - Skin Skin Exam: Dry, Intact, Normal Color, Warm Assessment and Plan - Assessment and Plan (Free Text) Assessment: PNEUMONIA SEVERE ANEMIA HTN ARRYTHMIAS Plan: WILL CONTINUE PRESENT RX HEMATOLOGY EVAL FOR RX OF ANEMIA
--- NOTE | 2017-08-31 10:51 | RAD ---
HISTORY: pneumonia COMPARISON: 08/29/2017 TECHNIQUE: Chest PA and lateral FINDINGS: LUNGS: Frontal and lateral views of the chest reveal mild interval clearing of lower lobe infiltrates from prior study. Minimal amount of residual right lower lobe infiltrate remains. No new upper lobe infiltrates are seen. PLEURA: No significant pleural effusion identified. No pneumothorax apparent. CARDIOVASCULAR: Unchanged OSSEOUS STRUCTURES: No significant abnormalities. VISUALIZED UPPER ABDOMEN: Normal. OTHER FINDINGS: None. IMPRESSION: Mild decrease in alveolar lower lobe infiltrates.
--- NOTE | 2017-08-31 11:59 | CARD ---
APPROVED REPORT EKG Measurement Heart [id number] <Conclusion> Sinus tachycardia Nonspecific T wave abnormality Abnormal ECG
--- NOTE | 2017-08-31 16:22 | CP.PCM.PN ---
Subjective - Date & Time of Evaluation Date of Evaluation: 08/31/17 Time of Evaluation: 16:20 - Subjective Subjective: Follow up Nephrology Consultation: Assessment: Stable Pneumonia Hypertensive Chronic Kidney Disease (I12.0) End stage renal disease (N18.6) dependence on PD Acute on chronic macrocytic Anemia (D64.9), Hyperphosphatemia (E83.39), Secondary Hyperparathyroidism (E21.1), HTN (I12.0) Hypercalcemia Plan: continue with PD as per her outpt prescription. Continue with Nephrovite 1 tab/ day. Continue with VALE as epogen [id number] three times a week, pending heme eval for acute on chronic anemia and macrocytosis. ordered FOB, iron studies, retic count , SPEP/GRECIA and kappa/lambda. Continue with phos binders last phos level 7.4 added fosrenol. pt advised to stop aurxia as outpt since her TSAT and Ferritin high. check PTH level BP control with meds as ordered. Patient on RAAS andressa as losartan Glycemic control, Dialysis consistent diet Further work up/management as per primary team Dose meds/antibiotics (if needed) for ESRD status. Avoid fleets enema/magnesium based laxatives. Thanks for allowing me to participate in care of your patient. Will follow patient with you. Please call if any Qs Dr John Wagner Office: [phone] Chief Complaint; cough HPI: Pt is a 62 F with hx of ESRD s/p LRRT in 1988 which failed 2-3 years ago and pt now on APD, chronic anemia, hyperphosphatemia, secondary hyperparathyroidism, hypertension presented with complaints of worsening chronic cough and SOB which is being treated for pneumonia. also with acute on chronic anemia. Hb usually in 9-10 range and managed with Mircera as outpt, last inj 2-3 weeks ago. no obvious bleed reported. pt uses APD, daughter does the connection for her. usual UF is 1.2-1.3 L/night ROS: Cardiovascular: No chest pain. Pulmonary: improved shortness of breath and c/o cough Gastrointestinal: denies abdominal pain No nausea. No vomiting. Genitourinary: minimal urine All other negative Physical Examination: General Appearance: Comfortable, in no acute respiratory distress, co-operative . Vitals reviewed and noted as below Head; Atraumatic, normocephalic ENT: no ulcers no thrush. Tongue is midline. Oropharynx: no rash or ulcers. EYES: Pupils are equal, round and reactive to light accommodation. Eye muscles and extraocular movement intact. Sclera is anicteric. Neck; supple no lymphadenopathy, no thyromegaly or bruit Lungs: Normal respiratory rate/effort. Breath sounds bilateral equal and clear Heart: Normal rate. s1s2 normal. No rub or gallop. Extremities: no edema. No varicose veins Neurological: Patient is alert, awake and oriented to person, place and time. No focal deficit. Strength bilateral appropriate and equal Skin: Warm and dry. Normal turgor. No rash. Palpitation: Normal elasticity for age Abdomen: Abdomen is soft. Bowel sounds +. There is no abdominal tenderness, no guarding/rigidity or organomegaly Psych: normal insight and normal affect/mood MSK: no joint tenderness or swelling. Digits and nails normal, no deformity : kidney or bladder not palpable Access: PD catheter Labs/imaging reviewed. Past medical history, past surgical history, family history, social history, allergy reviewed and noted as below Family Hx: no hx of CKD. Non contributory Objective - Vital Signs/Intake and Output Vital Signs (last 24 hours): Temp Pulse Resp BP Pulse Ox 97.8 F 86 18 135/85 97 08/31/17 16:19 08/31/17 16:19 08/31/17 16:19 08/31/17 16:19 08/31/17 16:19 - Medications Medications: Current Medications Acetaminophen (Tylenol 325mg Tab) 650 mg PO Q4 PRN PRN Reason: Flu symptoms Albuterol/Ipratropium (Duoneb 3 Mg/0.5 Mg (3 Ml) Ud) 3 ml INH RQ6 PRN PRN Reason: Shortness of Breath Allopurinol (Zyloprim) 100 mg PO DAILY [facility] Last Admin: 08/31/17 08:54 Dose: 100 mg Alprazolam (Xanax) 0.25 mg PO Q12H PRN PRN Reason: Anxiety Stop: 09/05/17 22:46 Atorvastatin Calcium (Lipitor) 10 mg PO DAILY [facility] Last Admin: 08/31/17 08:55 Dose: 10 mg Diltiazem HCl (Cardizem Cd) 120 mg PO DAILY [facility] Last Admin: 08/31/17 08:54 Dose: 120 mg Epoetin Collin (Procrit) 10,000 unit SC MWF [facility] Last Admin: 08/29/17 23:01 Dose: 10,000 unit Azithromycin 500 mg/ Sodium (Chloride) 250 mls @ 250 mls/hr IVPB DAILY [facility] PRN Reason: Protocol Last Admin: 08/31/17 09:49 Dose: 250 mls/hr Ceftriaxone Sodium 1 gm/ (Sodium Chloride) 100 mls @ 100 mls/hr IVPB DAILY [facility] PRN Reason: Protocol Last Admin: 08/31/17 08:55 Dose: 100 mls/hr Labetalol HCl (Trandate) 200 mg PO DAILY [facility] Last Admin: 08/31/17 08:56 Dose: 200 mg Lanthanum Carbonate (Fosrenol) 500 mg PO TIDWM [facility] Last Admin: 08/31/17 13:02 Dose: 500 mg Losartan Potassium (Cozaar) 100 mg PO QPM [facility] Last Admin: 08/30/17 20:25 Dose: 100 mg [id number] Ethyl Esters (Lovaza) 2 gm PO BID [facility] Last Admin: 08/31/17 08:54 Dose: 2 gm Oxycodone/Acetaminophen (Percocet 5/325 Mg Tab) 1 tab PO Q6 PRN PRN Reason: Pain, moderate (4-7) Stop: 09/01/17 22:36 Pantoprazole Sodium (Protonix Ec Tab) 40 mg PO DAILY [facility] Last Admin: 08/31/17 08:54 Dose: 40 mg Promethazine HCl/Codeine (Phenergan/Codeine Oral Syrup) 10 ml PO Q6 PRN PRN Reason: Cough Last Admin: 08/30/17 20:26 Dose: 10 ml Sevelamer HCl (Renagel) 2,400 mg PO TID [facility] Last Admin: 08/31/17 13:02 Dose: 2,400 mg Vitamin B Complex/Vit C/Folic Acid (Nephro-Graciela) 1 tab PO DAILY [facility] Last Admin: 08/31/17 08:54 Dose: 1 tab - Labs Labs: 08/31/17 07:20 08/31/17 07:20
--- NOTE | 2017-08-31 16:33 | CP.PCM.CON ---
History of Present Illness - History of Present Illness History of Present Illness: 62 year old female with a history of HTN, ESRD on peritoneal dialysis (prior failed kidney transplants), admitted with fatigue, pneumonia, with anemia. The patient denies abnormal bleeding and bruising. She notes to progressive fatigue for several week. She is currently s/p 1U PRBC and notes to improvement in her fatigue but notes shes still weak. Past medical history: HTN, ESRD Past surgical history: kidney transplant Family history: Denies hematologic and oncologic problems Social history: Denies tobacco, alcohol, and illicit drug use. Allergies: NKA Review of systems: All remaining review of systems including HEENT, cardiovascular, respiratory, gastrointestinal, genitourinary, musculoskeletal, dermatologic, neurologic, and psychiatric are negative unless mentioned in the HPI. Past Patient History - Infectious Disease Hx of Infectious Diseases: None - Past Medical History & Family History Past Medical History?: Yes - Past Social History Smoking Status: Never Smoked - CARDIAC Hx Hypertension: Yes - PULMONARY Hx Asthma: Yes - RENAL Hx Dialysis: Yes Type of Dialysis Access: peritoneal dialysis Date of Last Dialysis Treatment: 08/30/17 - MUSCULOSKELETAL/RHEUMATOLOGICAL Hx Falls: No - PSYCHIATRIC Hx Substance Use: No - SURGICAL HISTORY Hx Surgeries: Yes Hx Cholecystectomy: Yes Hx Vascular Access Device: Yes - ANESTHESIA Hx Anesthesia: Yes Hx Anesthesia Reactions: No Meds Allergies/Adverse Reactions: Allergies Allergy/AdvReac Type Severity Reaction Status Date / Time No Known Allergies Allergy Verified 08/11/17 17:40 - Medications Medications: Current Medications Acetaminophen (Tylenol 325mg Tab) 650 mg PO Q4 PRN PRN Reason: Flu symptoms Albuterol/Ipratropium (Duoneb 3 Mg/0.5 Mg (3 Ml) Ud) 3 ml INH RQ6 PRN PRN Reason: Shortness of Breath Allopurinol (Zyloprim) 100 mg PO DAILY [facility] Last Admin: 08/31/17 08:54 Dose: 100 mg Alprazolam (Xanax) 0.25 mg PO Q12H PRN PRN Reason: Anxiety Stop: 09/05/17 22:46 Atorvastatin Calcium (Lipitor) 10 mg PO DAILY [facility] Last Admin: 08/31/17 08:55 Dose: 10 mg Diltiazem HCl (Cardizem Cd) 120 mg PO DAILY [facility] Last Admin: 08/31/17 08:54 Dose: 120 mg Epoetin Collin (Procrit) 10,000 unit SC MWF [facility] Last Admin: 08/29/17 23:01 Dose: 10,000 unit Azithromycin 500 mg/ Sodium (Chloride) 250 mls @ 250 mls/hr IVPB DAILY [facility] PRN Reason: Protocol Last Admin: 08/31/17 09:49 Dose: 250 mls/hr Ceftriaxone Sodium 1 gm/ (Sodium Chloride) 100 mls @ 100 mls/hr IVPB DAILY [facility] PRN Reason: Protocol Last Admin: 08/31/17 08:55 Dose: 100 mls/hr Labetalol HCl (Trandate) 200 mg PO DAILY [facility] Last Admin: 08/31/17 08:56 Dose: 200 mg Lanthanum Carbonate (Fosrenol) 500 mg PO TIDWM [facility] Last Admin: 08/31/17 13:02 Dose: 500 mg Losartan Potassium (Cozaar) 100 mg PO QPM [facility] Last Admin: 08/30/17 20:25 Dose: 100 mg Nurfm-6-Mjil Ethyl Esters (Lovaza) 2 gm PO BID [facility] Last Admin: 08/31/17 08:54 Dose: 2 gm Oxycodone/Acetaminophen (Percocet 5/325 Mg Tab) 1 tab PO Q6 PRN PRN Reason: Pain, moderate (4-7) Stop: 09/01/17 22:36 Pantoprazole Sodium (Protonix Ec Tab) 40 mg PO DAILY [facility] Last Admin: 08/31/17 08:54 Dose: 40 mg Promethazine HCl/Codeine (Phenergan/Codeine Oral Syrup) 10 ml PO Q6 PRN PRN Reason: Cough Last Admin: 08/30/17 20:26 Dose: 10 ml Sevelamer HCl (Renagel) 2,400 mg PO TID [facility] Last Admin: 08/31/17 13:02 Dose: 2,400 mg Vitamin B Complex/Vit C/Folic Acid (Nephro-Graciela) 1 tab PO DAILY [facility] Last Admin: 08/31/17 08:54 Dose: 1 tab Physical Exam - Head Exam Head Exam: ATRAUMATIC - Eye Exam Eye Exam: Normal appearance - ENT Exam ENT Exam: Mucous Membranes Dry - Respiratory Exam Respiratory Exam: NORMAL BREATHING PATTERN - Cardiovascular Exam Cardiovascular Exam: +S1, +S2 - GI/Abdominal Exam GI & Abdominal Exam: Normal Bowel Sounds - Neurological Exam Neurological exam: Oriented x3 - Psychiatric Exam Psychiatric exam: Normal Affect, Normal Mood - Skin Skin Exam: Warm Results - Vital Signs Recent Vital Signs: Last Vital Signs Temp 97.8 F 08/31/17 16:19 Pulse 86 08/31/17 16:19 Resp 18 08/31/17 16:19 BP 135/85 08/31/17 16:19 Pulse Ox 97 08/31/17 16:19 - Labs Result Diagrams: 08/31/17 07:20 08/31/17 07:20 Labs: Laboratory Results - last 24 hr 08/29/17 08/30/17 08/31/17 18:13 10:00 07:20 WBC 13.4 H RBC 2.15 L Hgb 7.4 L Hct 22.3 L MCV 103.4 H D MCH 34.5 H MCHC 33.4 RDW 23.8 H Plt Count 225 MPV 8.1 Neut % (Auto) 78.4 H Lymph % (Auto) 15.0 L [place] % (Auto) 6.4 Eos % (Auto) 0.0 Baso % (Auto) 0.2 Neut # 10.5 H Lymph # 2.0 [place] # 0.9 H Eos # 0.0 Baso # 0.0 Sodium Potassium Chloride Carbon Dioxide Anion Gap BUN Creatinine Est GFR ( Amer) Est GFR (Non-Af Amer) Random Glucose Calcium Phosphorus Folate > 20.0 Blood Type O POSITIVE Antibody Screen Negative Crossmatch See Detail BBK History Checked Patient has bt 08/31/17 07:20 WBC RBC Hgb Hct MCV MCH MCHC RDW Plt Count MPV Neut % (Auto) Lymph % (Auto) [place] % (Auto) Eos % (Auto) Baso % (Auto) Neut # Lymph # [place] # Eos # Baso # Sodium 138 Potassium 4.6 Chloride 95 L Carbon Dioxide 26 Anion Gap 22 H BUN 89 H Creatinine 11.9 H* Est GFR ( Amer) 4 Est GFR (Non-Af Amer) 3 Random Glucose 216 H Calcium 9.8 Phosphorus 7.4 H Folate Blood Type Antibody Screen Crossmatch BBK History Checked Assessment & Plan (1) Anemia Assessment and Plan: work up consistent with a hypoproliferative erythroid response anemia of CKD on EPO per renal monoclonal protein w/u sent anemia of chronic disease no iron/b12/folate deficieny macrocytosis may be from underlying MDS but will not plan for bone marrow evaluation at this time; H/H may improve with EPO alone macrocytosis may also be from hypothyroid; will check TSH s/p 1 unit PRBC, will transfuse 2 additional units given patient still fatigued. Thank you for this interesting consult. Status: Acute
[2017-08-31] MEDS: Promethazine/Cod 6.25mg-10mg/5ml Syr UD PO PRN (21:28)
[2017-09-01] MEDS: EPOETIN ALFA 10,000 UNIT/ML ML SC SCH (08:32)
[2017-09-01] MEDS: Omega-3-Acid Ethyl Esters 1 GM Cap PO SCH ×2 (08:32→16:24)
[2017-09-01] MEDS: Multivitamin Vitamin B Complex (Nephro-Vite) Tab PO SCH (08:32)
[2017-09-01] MEDS: diltiaZEM 120 mg/24 Hours CD Cap PO SCH (08:33)
[2017-09-01] MEDS: Pantoprazole 40 mg EC Tab PO SCH (08:33)
--- NOTE | 2017-09-01 08:57 | CP.PCM.PN ---
Subjective - Date & Time of Evaluation Date of Evaluation: 09/01/17 Time of Evaluation: 08:57 - Subjective Subjective: STILL COUGHING NO CHEST PAINS/SOB S/P TRANSFUSSION OF PRBCS Objective - Vital Signs/Intake and Output Vital Signs (last 24 hours): Temp Pulse Resp BP Pulse Ox 98.0 F 96 H 20 164/88 H 97 09/01/17 07:44 09/01/17 08:33 09/01/17 07:44 09/01/17 08:33 09/01/17 07:44 - Medications Medications: Current Medications Acetaminophen (Tylenol 325mg Tab) 650 mg PO Q4 PRN PRN Reason: Flu symptoms Albuterol/Ipratropium (Duoneb 3 Mg/0.5 Mg (3 Ml) Ud) 3 ml INH RQ6 PRN PRN Reason: Shortness of Breath Allopurinol (Zyloprim) 100 mg PO DAILY [facility] Last Admin: 09/01/17 08:32 Dose: 100 mg Alprazolam (Xanax) 0.25 mg PO Q12H PRN PRN Reason: Anxiety Stop: 09/05/17 22:46 Atorvastatin Calcium (Lipitor) 10 mg PO DAILY [facility] Last Admin: 09/01/17 08:32 Dose: 10 mg Diltiazem HCl (Cardizem Cd) 120 mg PO DAILY [facility] Last Admin: 09/01/17 08:33 Dose: 120 mg Epoetin Collin (Procrit) 10,000 unit SC MWF [facility] Last Admin: 09/01/17 08:32 Dose: 10,000 unit Azithromycin 500 mg/ Sodium (Chloride) 250 mls @ 250 mls/hr IVPB DAILY [facility] PRN Reason: Protocol Last Admin: 08/31/17 09:49 Dose: 250 mls/hr Ceftriaxone Sodium 1 gm/ (Sodium Chloride) 100 mls @ 100 mls/hr IVPB DAILY [facility] PRN Reason: Protocol Last Admin: 09/01/17 08:34 Dose: 100 mls/hr Labetalol HCl (Trandate) 200 mg PO DAILY [facility] Last Admin: 09/01/17 08:33 Dose: 200 mg Lanthanum Carbonate (Fosrenol) 500 mg PO TIDWM [facility] Last Admin: 09/01/17 08:32 Dose: 500 mg Losartan Potassium (Cozaar) 100 mg PO QPM [facility] Last Admin: 08/31/17 17:50 Dose: 100 mg Endcz-9-Npyo Ethyl Esters (Lovaza) 2 gm PO BID [facility] Last Admin: 09/01/17 08:32 Dose: 2 gm Oxycodone/Acetaminophen (Percocet 5/325 Mg Tab) 1 tab PO Q6 PRN PRN Reason: Pain, moderate (4-7) Stop: 09/01/17 22:36 Pantoprazole Sodium (Protonix Ec Tab) 40 mg PO DAILY [facility] Last Admin: 09/01/17 08:33 Dose: 40 mg Promethazine HCl/Codeine (Phenergan/Codeine Oral Syrup) 10 ml PO Q6 PRN PRN Reason: Cough Last Admin: 08/31/17 21:28 Dose: 10 ml Sevelamer HCl (Renagel) 2,400 mg PO TID [facility] Last Admin: 09/01/17 08:31 Dose: 2,400 mg Vitamin B Complex/Vit C/Folic Acid (Nephro-Graciela) 1 tab PO DAILY [facility] Last Admin: 09/01/17 08:32 Dose: 1 tab - Labs Labs: 08/31/17 07:20 08/31/17 07:20 - Constitutional Appears: No Acute Distress - Head Exam Head Exam: ATRAUMATIC, NORMAL INSPECTION, NORMOCEPHALIC - Eye Exam Eye Exam: EOMI, Normal appearance, PERRL Pupil Exam: NORMAL ACCOMODATION, PERRL - ENT Exam ENT Exam: Mucous Membranes Moist, Normal Exam - Neck Exam Neck Exam: Full ROM, Normal Inspection. absent: Lymphadenopathy - Respiratory Exam Respiratory Exam: Decreased Breath Sounds, Prolonged Expiratory Phase, Rales, NORMAL BREATHING PATTERN - Cardiovascular Exam Cardiovascular Exam: REGULAR RHYTHM, +S1, +S2. absent: Murmur - GI/Abdominal Exam GI & Abdominal Exam: Soft, Normal Bowel Sounds. absent: Tenderness - Rectal Exam Rectal Exam: NORMAL INSPECTION - Extremities Exam Extremities Exam: Full ROM, Normal Capillary Refill, Normal Inspection. absent : Joint Swelling, Pedal Edema - Back Exam Back Exam: NORMAL INSPECTION - Neurological Exam Neurological Exam: Alert, Awake, CN II-XII Intact, Normal Gait, Oriented x3 - Psychiatric Exam Psychiatric exam: Normal Affect, Normal Mood - Skin Skin Exam: Dry, Intact, Normal Color, Warm Assessment and Plan - Assessment and Plan (Free Text) Assessment: PNEUMONIA IMPROVED ANEMIA ESRD HTN Plan: CONTINUE PRESENT RX
--- NOTE | 2017-09-01 09:22 | CP.PCM.PN ---
Subjective - Date & Time of Evaluation Date of Evaluation: 09/01/17 Time of Evaluation: 09:19 - Subjective Subjective: Patient is out of bed List dizziness No nausea or vomiting No abdominal pain Objective - Vital Signs/Intake and Output Vital Signs (last 24 hours): Temp Pulse Resp BP Pulse Ox 98.0 F 96 H 20 164/88 H 97 09/01/17 07:44 09/01/17 08:33 09/01/17 07:44 09/01/17 08:33 09/01/17 07:44 - Medications Medications: Current Medications Acetaminophen (Tylenol 325mg Tab) 650 mg PO Q4 PRN PRN Reason: Flu symptoms Albuterol/Ipratropium (Duoneb 3 Mg/0.5 Mg (3 Ml) Ud) 3 ml INH RQ6 PRN PRN Reason: Shortness of Breath Allopurinol (Zyloprim) 100 mg PO DAILY [facility] Last Admin: 09/01/17 08:32 Dose: 100 mg Alprazolam (Xanax) 0.25 mg PO Q12H PRN PRN Reason: Anxiety Stop: 09/05/17 22:46 Atorvastatin Calcium (Lipitor) 10 mg PO DAILY [facility] Last Admin: 09/01/17 08:32 Dose: 10 mg Diltiazem HCl (Cardizem Cd) 120 mg PO DAILY [facility] Last Admin: 09/01/17 08:33 Dose: 120 mg Epoetin Collin (Procrit) 10,000 unit SC MWF [facility] Last Admin: 09/01/17 08:32 Dose: 10,000 unit Azithromycin 500 mg/ Sodium (Chloride) 250 mls @ 250 mls/hr IVPB DAILY [facility] PRN Reason: Protocol Last Admin: 08/31/17 09:49 Dose: 250 mls/hr Ceftriaxone Sodium 1 gm/ (Sodium Chloride) 100 mls @ 100 mls/hr IVPB DAILY [facility] PRN Reason: Protocol Last Admin: 09/01/17 08:34 Dose: 100 mls/hr Labetalol HCl (Trandate) 200 mg PO DAILY [facility] Last Admin: 09/01/17 08:33 Dose: 200 mg Lanthanum Carbonate (Fosrenol) 500 mg PO TIDWM [facility] Last Admin: 09/01/17 08:32 Dose: 500 mg Losartan Potassium (Cozaar) 100 mg PO QPM [facility] Last Admin: 08/31/17 17:50 Dose: 100 mg Uxaid-3-Mrsq Ethyl Esters (Lovaza) 2 gm PO BID [facility] Last Admin: 09/01/17 08:32 Dose: 2 gm Oxycodone/Acetaminophen (Percocet 5/325 Mg Tab) 1 tab PO Q6 PRN PRN Reason: Pain, moderate (4-7) Stop: 09/01/17 22:36 Pantoprazole Sodium (Protonix Ec Tab) 40 mg PO DAILY [facility] Last Admin: 09/01/17 08:33 Dose: 40 mg Promethazine HCl/Codeine (Phenergan/Codeine Oral Syrup) 10 ml PO Q6 PRN PRN Reason: Cough Last Admin: 08/31/17 21:28 Dose: 10 ml Sevelamer HCl (Renagel) 2,400 mg PO TID [facility] Last Admin: 09/01/17 08:31 Dose: 2,400 mg Vitamin B Complex/Vit C/Folic Acid (Nephro-Graciela) 1 tab PO DAILY [facility] Last Admin: 09/01/17 08:32 Dose: 1 tab - Labs Labs: 08/31/17 07:20 08/31/17 07:20 - Constitutional Appears: No Acute Distress - ENT Exam ENT Exam: Mucous Membranes Moist - Neck Exam Neck Exam: absent: Lymphadenopathy - Respiratory Exam Respiratory Exam: NORMAL BREATHING PATTERN. absent: Chest Wall Tenderness, Rales - Cardiovascular Exam Cardiovascular Exam: REGULAR RHYTHM. absent: JVD, Rubs - GI/Abdominal Exam GI & Abdominal Exam: Soft. absent: Guarding - Extremities Exam Extremities Exam: absent: Calf Tenderness - Back Exam Back Exam: absent: CVA tenderness (L), CVA tenderness (R) - Neurological Exam Neurological Exam: Alert - Psychiatric Exam Psychiatric exam: Normal Affect - Skin Skin Exam: absent: Cyanosis Assessment and Plan (1) CKD (chronic kidney disease) requiring chronic dialysis Assessment & Plan: End stage renal disease on peritoneal dialysis. Patient completed the cycle overnight and she lost approximately 1400 mL overnight of fluid Still complaining of weakness hemoglobin still low Serum iron and serum iron saturation is okay Hyperphosphatemia continue binder she is on Renvela Serum calcium repeated one is normal . Anemia patient may need more blood transfusion . Hematology on board Patient status post kidney transplant twice in the last kidney transplant was way over 20 years ago. Continue peritoneal dialysis as scheduled patient has the machine at the bedside and she is already trained very well . Status: Acute (2) Anemia Status: Acute
[2017-09-01] MEDS: Azithromycin 500 MG in Sodium Chloride 0.9% 250 ML IVPB SCH (10:39)
[2017-09-01] MEDS: Albuterol-Ipratrop 3 mg / 0.5 (3 ml) UD INH PRN ×3 (11:25→20:24)
[2017-09-01 11:49] LABS: HEMOGLOBIN 10.8 g/dL (12.0-16.0); MEAN CELL VOLUME 97.9 fl (81.0-99.0); MEAN CORPUSCULAR HEMOGLOBIN 33.4 pg (27.0-31.0); MEAN CORPUSCULAR HGB CONC 34.1 g/dL (33.0-37.0); RBC 3.23 Mil/uL (3.80-5.20); WHITE BLOOD COUNT 11.1 K/uL (4.8-10.8)
[2017-09-01] MEDS ORDERED: Promethazine 12.5 mg/10 ml Syrup PO PRN (21:35)
[2017-09-02 00:19] VITALS: O2SAT 96
--- NOTE | 2017-09-02 07:19 | CP.PCM.PN ---
Subjective - Date & Time of Evaluation Date of Evaluation: 09/02/17 Time of Evaluation: 07:17 - Subjective Subjective: Patient and bed feeling much better after she received a blood transfusion. Hemoglobin has gone up 10.8 Patient completed. Toenail dialysis cycler overnight And drainage approximately in the range of over 1400 mL No abdominal pain PD fluid is clear Objective - Vital Signs/Intake and Output Vital Signs (last 24 hours): Temp Pulse Resp BP Pulse Ox 98.4 F 95 H 19 156/71 H 96 09/02/17 00:00 09/02/17 00:00 09/02/17 00:00 09/02/17 00:00 09/02/17 00:00 - Medications Medications: Current Medications Acetaminophen (Tylenol 325mg Tab) 650 mg PO Q4 PRN PRN Reason: Flu symptoms Albuterol/Ipratropium (Duoneb 3 Mg/0.5 Mg (3 Ml) Ud) 3 ml INH RQ6 PRN PRN Reason: Shortness of Breath Last Admin: 09/01/17 20:24 Dose: 3 ml Allopurinol (Zyloprim) 100 mg PO DAILY [facility] Last Admin: 09/01/17 08:32 Dose: 100 mg Alprazolam (Xanax) 0.25 mg PO Q12H PRN PRN Reason: Anxiety Stop: 09/05/17 22:46 Atorvastatin Calcium (Lipitor) 10 mg PO DAILY [facility] Last Admin: 09/01/17 08:32 Dose: 10 mg Diltiazem HCl (Cardizem Cd) 120 mg PO DAILY [facility] Last Admin: 09/01/17 08:33 Dose: 120 mg Epoetin Collin (Procrit) 10,000 unit [facility] Last Admin: 09/01/17 08:32 Dose: 10,000 unit Azithromycin 500 mg/ Sodium (Chloride) 250 mls @ 250 mls/hr IVPB DAILY [facility] PRN Reason: Protocol Last Admin: 09/01/17 10:39 Dose: 250 mls/hr Ceftriaxone Sodium 1 gm/ (Sodium Chloride) 100 mls @ 100 mls/hr IVPB DAILY [facility] PRN Reason: Protocol Last Admin: 09/01/17 08:34 Dose: 100 mls/hr Labetalol HCl (Trandate) 200 mg PO DAILY [facility] Last Admin: 09/01/17 08:33 Dose: 200 mg Lanthanum Carbonate (Fosrenol) 500 mg PO TIDWM [facility] Last Admin: 09/01/17 16:25 Dose: 500 mg Losartan Potassium (Cozaar) 100 mg PO QPM [facility] Last Admin: 09/01/17 17:36 Dose: 100 mg Uwwhg-6-Pccg Ethyl Esters (Lovaza) 2 gm PO BID [facility] Last Admin: 09/01/17 16:24 Dose: 2 gm Pantoprazole Sodium (Protonix Ec Tab) 40 mg PO DAILY [facility] Last Admin: 09/01/17 08:33 Dose: 40 mg Promethazine HCl (Phenergan Syrup) 12.5 mg PO Q6 PRN PRN Reason: Cough Last Admin: 09/01/17 22:45 Dose: 12.5 mg Promethazine HCl/Codeine (Phenergan/Codeine Oral Syrup) 10 ml PO Q6 PRN PRN Reason: Cough Last Admin: 08/31/17 21:28 Dose: 10 ml Sevelamer HCl (Renagel) 2,400 mg PO TID [facility] Last Admin: 09/01/17 16:24 Dose: 2,400 mg Vitamin B Complex/Vit C/Folic Acid (Nephro-Graciela) 1 tab PO DAILY [facility] Last Admin: 09/01/17 08:32 Dose: 1 tab - Labs Labs: 09/01/17 11:35 08/31/17 07:20 - Constitutional Appears: No Acute Distress - ENT Exam ENT Exam: Mucous Membranes Moist - Respiratory Exam Respiratory Exam: NORMAL BREATHING PATTERN. absent: Chest Wall Tenderness - Cardiovascular Exam Cardiovascular Exam: absent: JVD, Rubs - GI/Abdominal Exam GI & Abdominal Exam: Soft, Normal Bowel Sounds - Extremities Exam Extremities Exam: absent: Calf Tenderness - Back Exam Back Exam: absent: CVA tenderness (L), CVA tenderness (R) - Neurological Exam Neurological Exam: Alert - Psychiatric Exam Psychiatric exam: Normal Affect - Skin Skin Exam: absent: Cyanosis Assessment and Plan (1) CKD (chronic kidney disease) requiring chronic dialysis Assessment & Plan: End stage renal disease patient on peritoneal dialysis using the cycler machine. Patient has been doing on dialysis very well Review:all records With the patient including intake output Vital signs stable Hemoglobin has gone up 10.8 posttransfusion Continue monitoring Status: Acute (2) Anemia Status: Acute
[2017-09-02 08:00] VITALS: BP 152/76; PULSE 100; RESP 20; TEMP 98.6
--- NOTE | 2017-09-02 08:28 | PQF GENQUE ---
Dr. Chamberlain, Please specify type of pneumonia or possible type of pneumonia in the progress notes: if known; i.e. Aspiration pneumonia Please document specific aspirate (food, liquids, etc.) Please indicate if this is postprocedural Bacterial (specify organism) Bronchopneumonia (specify organism) Interstitual pneumonia Organizing pneumonia/BOOP Pneumonia with influenza, [place] flu, or H1N1 flu RSV pneumonia Viral pneumonia Other pneumonia (specify organism or type) Clinically unable to determine Unknown . Please specify the organism causing the pneumonia: if known after the work up is completed Note: CAP, HAP, and HCAP indicate where the pneumonia was acquired, not a specific type. This form is a permanent part of the medical record Clarification of your documentation is requested to better reflect the severity of illness and intensity of treatment of your patient. Indicators present [] Specify: [] [] Specify: [] [] Specify: [] [] Specify: [] Location in the medical record that reflects the above clinical findings: [] Treatment Provided: [] PHYSICIAN'S RESPONSE Based on your medical judgment of the clinical indicators outlined above please clarify the following: [x] Practitioner response -bronchopneumonia--unknown organism [] If unable to determine, please check the box, sign and date. Present On Admission (POA) Indicator: [] Present at the time of admission [] Not present at the time of admission [] Clinically Undetermined In responding to this query, please exercise your independent professional judgment. The fact that a question is asked does not imply that any particular answer is desired or expected. Thank you for your clarification on this documentation. If you have any questions please call. * Thank you, Luisa Crouch RN ext. #[phone] MTDD
[2017-09-02] MEDS: diltiaZEM 120 mg/24 Hours CD Cap PO SCH (08:54)
[2017-09-02] MEDS: Omega-3-Acid Ethyl Esters 1 GM Cap PO SCH (08:55)
[2017-09-02] MEDS: Multivitamin Vitamin B Complex (Nephro-Vite) Tab PO SCH (08:55)
[2017-09-02] MEDS: Pantoprazole 40 mg EC Tab PO SCH (08:55)
--- NOTE | 2017-09-02 09:02 | CP.PCM.DIS ---
Provider - Provider Date of Admission: 08/29/17 17:55 Attending physician: Yao Anand MD Time Spent in preparation of Discharge (in minutes): 30 Diagnosis - Discharge Diagnosis (1) Hypertension Status: Acute (2) Anemia Status: Acute (3) CKD (chronic kidney disease) requiring chronic dialysis Status: Acute (4) Pneumonia Status: Acute Hospital Course - Lab Results Lab Results: Micro Results 08/29/17 16:40 Blood-Venous Blood Culture - Preliminary NO GROWTH AFTER 3 DAYS 08/29/17 18:10 Blood-Venous Blood Culture - Preliminary NO GROWTH AFTER 3 DAYS Most Recent Lab Values WBC 11.1 K/uL (4.8-10.8) H 09/01/17 11:35 RBC 3.23 Mil/uL (3.80-5.20) L 09/01/17 11:35 Hgb 10.8 g/dL (12.0-16.0) L D 09/01/17 11:35 Hct 31.6 % (34.0-47.0) L 09/01/17 11:35 MCV 97.9 fl (81.0-99.0) D 09/01/17 11:35 MCH 33.4 pg (27.0-31.0) H 09/01/17 11:35 MCHC 34.1 g/dL (33.0-37.0) 09/01/17 11:35 RDW 23.0 % (11.5-14.5) H 09/01/17 11:35 Plt Count 222 K/uL (130-400) 09/01/17 11:35 MPV 8.1 fl (7.2-11.7) 08/31/17 07:20 Neut % (Auto) 78.4 % (50.0-75.0) H 08/31/17 07:20 Lymph % (Auto) 15.0 % (20.0-40.0) L 08/31/17 07:20 [place] % (Auto) 6.4 % (0.0-10.0) 08/31/17 07:20 Eos % (Auto) 0.0 % (0.0-4.0) 08/31/17 07:20 Baso % (Auto) 0.2 % (0.0-2.0) 08/31/17 07:20 Neut # 10.5 K/uL (1.8-7.0) H 08/31/17 07:20 Lymph # 2.0 K/uL (1.0-4.3) 08/31/17 07:20 [place] # 0.9 K/uL (0.0-0.8) H 08/31/17 07:20 Eos # 0.0 K/uL (0.0-0.7) 08/31/17 07:20 Baso # 0.0 K/uL (0.0-0.2) 08/31/17 07:20 Retic Count 3.3 % (0.5-1.5) H 08/30/17 10:00 Sodium 138 mmol/l (132-148) 08/31/17 07:20 Potassium 4.6 MMOL/L (3.6-5.0) 08/31/17 07:20 Chloride 95 mmol/L (98-107) L 08/31/17 07:20 Carbon Dioxide 26 mmol/L (22-30) 08/31/17 07:20 Anion Gap 22 (10-20) H 08/31/17 07:20 BUN 89 mg/dl (7-17) H 08/31/17 07:20 Creatinine 11.9 mg/dl (0.7-1.2) H* 08/31/17 07:20 Est GFR ( Amer) 4 08/31/17 07:20 Est GFR (Non-Af Amer) 3 08/31/17 07:20 Random Glucose 216 mg/dL (65-105) H 08/31/17 07:20 Calcium 9.8 mg/dL (8.4-10.2) 08/31/17 07:20 Phosphorus 7.4 mg/dl (2.5-4.5) H 08/31/17 07:20 Iron 147 ug/dL (37-170) 08/30/17 10:00 TIBC 211 ug/dL (250-450) L 08/30/17 10:00 % Saturation 70 % (20-55) H 08/30/17 10:00 Ferritin 1470.0 ng/Ml (11.1-264.0) H 08/30/17 10:00 Total Bilirubin 0.5 mg/dl (0.2-1.3) 08/29/17 16:25 AST 34 U/L (14-36) 08/29/17 16:25 ALT 49 U/L (9-52) 08/29/17 16:25 Alkaline Phosphatase 54 U/L (38-126) 08/29/17 16:25 Troponin I 0.0460 ng/mL (0.00-0.120) 08/29/17 16:25 NT-Pro-B Natriuret Pep 67934 pg/ml (0-900) H 08/29/17 16:25 Total Protein 7.1 G/DL (6.3-8.2) 08/29/17 16:25 Total Protein (PEP) 5.7 g/dL (6.1-8.1) L 08/31/17 07:20 Albumin 3.7 g/dL (3.5-5.0) 08/29/17 16:25 Globulin 3.4 gm/dL (2.2-3.9) 08/29/17 16:25 Albumin/Globulin Ratio 1.1 (1.0-2.1) 08/29/17 16:25 Vitamin B12 979 pg/mL (239-931) H 08/30/17 10:00 25-OH Vitamin D Total 16.3 NG/ML (30.0-100.0) L 08/31/17 07:20 Folate > 20.0 ng/mL 08/30/17 10:00 TSH 3rd Generation 2.66 mIU/ML (0.46-4.68) 09/01/17 11:35 Stool Occult Blood Negative (NEGATIVE) 08/31/17 21:50 Blood Type O POSITIVE 08/29/17 18:13 Antibody Screen Negative 08/29/17 18:13 Crossmatch See Detail 08/29/17 18:13 BBK History Checked Patient has bt 08/29/17 18:13 - Hospital Course Hospital Course: FEELS BETTER NO CHEST PAIN OR SOB CXR-PNEUMONIA IMPROVED Discharge Exam - Head Exam Head Exam: ATRAUMATIC, NORMAL INSPECTION, NORMOCEPHALIC - Eye Exam Eye Exam: EOMI, Normal appearance, PERRL Pupil Exam: NORMAL ACCOMODATION, PERRL - GI/Abdominal Exam GI & Abdominal Exam: Normal Bowel Sounds - Rectal Exam Rectal Exam: NORMAL INSPECTION - Neurological Exam Neurological exam: Alert, CN II-XII Intact, Normal Gait, Oriented x3, Reflexes Normal - Psychiatric Exam Psychiatric exam: Normal Affect, Normal Mood - Skin Skin Exam: Dry, Intact, Normal Color, Warm Discharge Plan - Follow Up Plan Condition: FAIR Disposition: HOME/ ROUTINE Patient education suggested?: Yes Additional Instructions: DISCHARGE TODAY FOLLOW UP WITH DR ANAND
[2017-09-02] MEDS: Azithromycin 500 MG in Sodium Chloride 0.9% 250 ML IVPB SCH (10:35)
--- NOTE | 2017-09-02 13:14 | CP.PCM.PN ---
Subjective - Date & Time of Evaluation Date of Evaluation: 09/02/17 Time of Evaluation: 11:20 - Subjective Subjective: Feeling better. Objective - Vital Signs/Intake and Output Vital Signs (last 24 hours): Temp Pulse Resp BP Pulse Ox 98.6 F 100 H 20 152/76 H 96 09/02/17 07:59 09/02/17 08:56 09/02/17 07:59 09/02/17 08:56 09/02/17 07:59 - Medications Medications: Current Medications Acetaminophen (Tylenol 325mg Tab) 650 mg PO Q4 PRN PRN Reason: Flu symptoms Albuterol/Ipratropium (Duoneb 3 Mg/0.5 Mg (3 Ml) Ud) 3 ml INH RQ6 PRN PRN Reason: Shortness of Breath Last Admin: 09/01/17 20:24 Dose: 3 ml Allopurinol (Zyloprim) 100 mg PO DAILY [facility] Last Admin: 09/02/17 08:56 Dose: 100 mg Alprazolam (Xanax) 0.25 mg PO Q12H PRN PRN Reason: Anxiety Stop: 09/05/17 22:46 Atorvastatin Calcium (Lipitor) 10 mg PO DAILY [facility] Last Admin: 09/02/17 08:54 Dose: 10 mg Diltiazem HCl (Cardizem Cd) 120 mg PO DAILY [facility] Last Admin: 09/02/17 08:54 Dose: 120 mg Epoetin Collin (Procrit) 10,000 unit SC MWF [facility] Last Admin: 09/01/17 08:32 Dose: 10,000 unit Azithromycin 500 mg/ Sodium (Chloride) 250 mls @ 250 mls/hr IVPB DAILY [facility] PRN Reason: Protocol Last Admin: 09/02/17 10:35 Dose: 250 mls/hr Ceftriaxone Sodium 1 gm/ (Sodium Chloride) 100 mls @ 100 mls/hr IVPB DAILY [facility] PRN Reason: Protocol Last Admin: 09/02/17 08:55 Dose: 100 mls/hr Labetalol HCl (Trandate) 200 mg PO DAILY [facility] Last Admin: 09/02/17 08:56 Dose: 200 mg Lanthanum Carbonate (Fosrenol) 500 mg PO TIDWM [facility] Last Admin: 09/02/17 13:04 Dose: 500 mg Losartan Potassium (Cozaar) 100 mg PO QPM [facility] Last Admin: 09/01/17 17:36 Dose: 100 mg Sbmdo-3-Yzxo Ethyl Esters (Lovaza) 2 gm PO BID [facility] Last Admin: 09/02/17 08:55 Dose: 2 gm Pantoprazole Sodium (Protonix Ec Tab) 40 mg PO DAILY [facility] Last Admin: 09/02/17 08:55 Dose: 40 mg Promethazine HCl (Phenergan Syrup) 12.5 mg PO Q6 PRN PRN Reason: Cough Last Admin: 09/01/17 22:45 Dose: 12.5 mg Promethazine HCl/Codeine (Phenergan/Codeine Oral Syrup) 10 ml PO Q6 PRN PRN Reason: Cough Last Admin: 08/31/17 21:28 Dose: 10 ml Sevelamer HCl (Renagel) 2,400 mg PO TID [facility] Last Admin: 09/02/17 13:04 Dose: 2,400 mg Vitamin B Complex/Vit C/Folic Acid (Nephro-Graciela) 1 tab PO DAILY [facility] Last Admin: 09/02/17 08:55 Dose: 1 tab - Labs Labs: 09/01/17 11:35 08/31/17 07:20 - Head Exam Head Exam: ATRAUMATIC - Eye Exam Eye Exam: Normal appearance - ENT Exam ENT Exam: Mucous Membranes Dry - Respiratory Exam Respiratory Exam: NORMAL BREATHING PATTERN - Cardiovascular Exam Cardiovascular Exam: +S1, +S2 - GI/Abdominal Exam GI & Abdominal Exam: Normal Bowel Sounds Assessment and Plan (1) Anemia Assessment & Plan: likely anemia of chronic kidney disease started on EPO s/p PRBC transfusion Status: Acute
[2017-09-03 13:07] LABS: ALBUMIN (PEP) 2.8 g/dL (3.8-4.8); ALPHA-1-GLOBULIN (PEP) 0.4 g/dL (0.2-0.3)
== END 2017-09-02 14:48 | disposition home or self-care (01) | DRG 193 ==
LOC: H.ER 15:09 → H.ERHOLD 17:55 → OBSVTOIN 17:55 → H.MEDSURG1 20:45
PROVIDERS: ADMIT Internal Medicine Pulmonary Disease; ATTEND Internal Medicine Pulmonary Disease
PROC: 30233N1 Transfusion of Nonautologous Red Blood Cells into Peripheral Vein, Percutaneous Approach (ICD-10-PCS; principal; 2017-08-30)
PROC: 3E1M39Z Irrigation of Peritoneal Cavity using Dialysate, Percutaneous Approach (ICD-10-PCS; 2017-08-30)
DX: J18.0 Bronchopneumonia, unspecified organism (principal); N18.6 End stage renal disease; N25.81 Secondary hyperparathyroidism of renal origin; I12.0 Hypertensive chronic kidney disease with stage 5 chronic kidney disease or end stage renal disease; E83.39 Other disorders of phosphorus metabolism; E83.52 Hypercalcemia; Z94.0 Kidney transplant status; Z99.2 Dependence on renal dialysis; J45.909 Unspecified asthma, uncomplicated; K29.70 Gastritis, unspecified, without bleeding; Z87.891 Personal history of nicotine dependence; D63.1 Anemia in chronic kidney disease; R94.31 Abnormal electrocardiogram [ECG] [EKG]; D75.89 Other specified diseases of blood and blood-forming organs; I49.9 Cardiac arrhythmia, unspecified

== ENCOUNTER 2017-11-06 12:03 | Inpatient (IN) | payer BC, MEDICARE ==
[2017-11-06 12:03] VITALS: BMI 32.1
--- NOTE | 2017-11-06 14:34 | RAD ---
HISTORY: syncope COMPARISON: 08/31/2017 FINDINGS: LUNGS: No active pulmonary disease. PLEURA: No significant pleural effusion identified, no pneumothorax apparent. CARDIOVASCULAR: No radiographic findings to suggest acute or significant cardiovascular disease. OSSEOUS STRUCTURES: No significant abnormalities. VISUALIZED UPPER ABDOMEN: Normal. OTHER FINDINGS: None. IMPRESSION: No active disease. No significant interval change compared to the prior examination(s).
--- NOTE | 2017-11-06 15:15 | ED PDOC ---
Syncope/Near Syncope/Dizziness Time Seen by Provider: 11/06/17 12:15 Chief Complaint (Nursing): Syncope Chief Complaint (Provider): Near Syncope History Per: Patient History/Exam Limitations: no limitations Onset/Duration Of Symptoms: Mins (prior to arrival) Current Symptoms Are (Timing): Still Present Additional Complaint(s): 62 year old female with a past medical history of end stage renal disease, HTN, and anemia, who presents to the ED due to a pre-syncopal episode prior to arrival. Patient states she had peritoneal dialysis treatment today, felt weak afterwards, and had a presyncopal episode after coughing. Denies fever, chest pain, shortness of breath, nausea or vomiting. PMD: Dr. Yao Chamberlain Past Medical History Reviewed: Historical Data, Nursing Documentation, Vital Signs Vital Signs: Last Vital Signs Temp 97 F L 11/06/17 12:07 Pulse 98 H 11/06/17 12:07 Resp 16 11/06/17 12:07 BP 132/88 11/06/17 12:07 Pulse Ox 100 11/06/17 12:07 - Medical History PMH: Anemia, Asthma, HTN, Hypercholesterolemia, Pneumonia, End Stage Renal Disease (on peritoneal dialysis), Chronic Kidney Disease - Surgical History Surgical History: Cholecystectomy - Family History Family History: States: Unknown Family Hx - Social History Current smoker - smoking cessation education provided: No Alcohol: None Drugs: Denies - Immunization History Hx Influenza Vaccination: Yes Hx Pneumococcal Vaccination: Yes - Home Medications Home Medications: Ambulatory Orders Medication Instructions Recorded Esomeprazole Magnesium [Nexium] 40 mg PO DAILY PRN 02/21/17 [id number] Ethyl Esters 1 GM 2 gm PO BID 02/21/17 [Lovaza] Rosuvastatin Calcium [Crestor] 5 mg PO Q48H 02/21/17 Sevelamer Carbonate [Renvela] 1,600 mg PO TID 02/21/17 Albuterol Sulfate [Proair Hfa] 2 puff IH Q6 PRN 11/06/17 B Complex W-C No.20/Folic Acid 1 cap PO DAILY 11/06/17 [Virt-Caps Softgel] Hydrocortisone [Anusol-Hc] 25 mg [place] BID 11/06/17 Hydrocortisone [Cortef] 5 mg PO QPM 11/06/17 Hydrocortisone [Cortef] 10 mg PO QAM 11/06/17 Hydrocortisone [Proctosol-Hc] 1 appl RC BID PRN 11/06/17 Magnesium Oxide [Magox 400] 400 mg PO DAILY 11/06/17 Paricalcitol [Zemplar] 1 mcg PO Q48H 11/06/17 Promethazine DM [Phenergan DM 5 ml PO Q8 PRN 11/06/17 Syrup] Propranolol HCl [Propranolol HCl 60 mg PO QPM 11/06/17 ER] Sertraline [Zoloft] 50 mg PO HS 11/06/17 clonazePAM [Klonopin] 0.5 mg PO HS 11/06/17 Ferrous Sulfate [Feosol] 325 mg PO TID #90 tab 11/08/17 - Allergies Allergies/Adverse Reactions: Allergies Allergy/AdvReac Type Severity Reaction Status Date / Time No Known Allergies Allergy Verified 08/11/17 17:40 Review of Systems ROS Statement: Except As Marked, All Systems Reviewed And Found Negative Constitutional: Negative for: Fever Cardiovascular: Negative for: Chest Pain Respiratory: Negative for: Shortness of Breath Gastrointestinal: Negative for: Nausea, Vomiting Neurological: Positive for: Weakness, Dizziness Physical Exam - Reviewed Nursing Documentation Reviewed: Yes Vital Signs Reviewed: Yes - Physical Exam Appears: Positive for: Non-toxic, No Acute Distress Head Exam: Positive for: ATRAUMATIC, NORMAL INSPECTION, NORMOCEPHALIC Skin: Positive for: Normal Color, Warm, Dry. Negative for: Rash Eye Exam: Positive for: EOMI, Normal appearance, PERRL Neck: Positive for: Normal, Painless ROM, Supple Cardiovascular/Chest: Positive for: Regular Rate, Rhythm. Negative for: Murmur Respiratory: Positive for: Normal Breath Sounds Gastrointestinal/Abdominal: Positive for: Normal Exam, Bowel Sounds, Soft. Negative for: Tenderness Back: Positive for: Normal Inspection. Negative for: L CVA Tenderness, R CVA Tenderness, Vertebral Tenderness Extremity: Positive for: Normal ROM. Negative for: Pedal Edema, Deformity Neurologic/Psych: Positive for: Alert, Oriented (x3). Negative for: Motor/ Sensory Deficits - Laboratory Results Result Diagrams: 11/08/17 09:48 11/08/17 09:48 - ECG O2 Sat by Pulse Oximetry: 100 (RA) Pulse Ox Interpretation: Normal Medical Decision Making Medical Decision Making: Time: 13:31 Initial Plan: syncope rule out cardiac etiology versus electrolyte abnormality --CMP --Troponin I --CBC w/ differential --CXR --Reevaluation Time: 14:33 CHEST X-RAY FINDINGS: LUNGS: No active pulmonary disease. PLEURA: No significant pleural effusion identified, no pneumothorax apparent. CARDIOVASCULAR: No radiographic findings to suggest acute or significant cardiovascular disease. OSSEOUS STRUCTURES: No significant abnormalities. VISUALIZED UPPER ABDOMEN: Normal. OTHER FINDINGS: None. IMPRESSION: No active disease. No significant interval change compared to the prior examination(s). Time: 16:30 Labs reveal hemoglobin of 6.8. Patient likely syncopized due to anemia. Will order transfusion and will call Dr. Chamberlain for admission. Time: 16:43 Spoke to patient's family and Dr. Chamberlain. Said to admit patient for symptomatic anemia and transfuse. Consulted Dr. Rutherford of Hematology due to patient's chronic anemia. Consent obtained for transfusion. Scribe Attestation: Documented by Josh Moralez, acting as a scribe for Danielle Frazier MD. Provider Scribe Attestation: All medical record entries made by the Scribe were at my direction and personally dictated by me. I have reviewed the chart and agree that the record accurately reflects my personal performance of the history, physical exam, medical decision making, and the department course for this patient. I have also personally directed, reviewed, and agree with the discharge instructions and disposition. Disposition - Clinical Impression Clinical Impression: Syncope - Patient ED Disposition Is Patient to be Admitted: Yes Counseled Patient/Family Regarding: Studies Performed, Diagnosis - Disposition Disposition Time: 15:00 Condition: GOOD - Pt Status Changed To: Hospital Disposition Of: Inpatient - Admit Certification Admit to Inpatient:: After my assessment, the patient will require hospitalization for at least two midnights. This is because of the severity of symptoms shown, intensity of services needed, and/or the medical risk in this patient being treated as an outpatient.
[2017-11-06 15:38] LABS: BASO # 0.1 K/uL (0.0-0.2); BASO % 0.8 % (0.0-2.0); EOS # 0.1 K/uL (0.0-0.7); EOS % 0.7 % (0.0-4.0); HEMOGLOBIN 6.8 g/dL (12.0-16.0); LYMPH # 3.3 K/uL (1.0-4.3); MEAN CELL VOLUME 113.3 fl (81.0-99.0); MEAN CORPUSCULAR HEMOGLOBIN 36.3 pg (27.0-31.0); MEAN CORPUSCULAR HGB CONC 32.1 g/dL (33.0-37.0); MEAN PLATELET VOLUME 8.5 fl (7.2-11.7); MONO # 1.7 K/uL (0.0-0.8); MONO % 10.4 % (0.0-10.0); NEUT # 11.2 K/uL (1.8-7.0); NEUT % 68.1 % (50.0-75.0); NRBC % 0.2 % (0.0-0.0); RBC 1.87 Mil/uL (3.80-5.20); RED CELL DISTRIBUTION WIDTH 17.6 % (11.5-14.5); WHITE BLOOD COUNT 16.5 K/uL (4.8-10.8)
[2017-11-06 16:04] LABS: TROPONIN I 0.014 ng/mL (0.00-0.120)
[2017-11-06 16:13] LABS: ALB/GLOB RATIO 0.9 (1.0-2.1); ALBUMIN 3.3 g/dL (3.5-5.0); CALCIUM 10.6 mg/dL (8.4-10.2)
--- NOTE | 2017-11-06 18:23 | CP.PCM.CON ---
History of Present Illness - History of Present Illness History of Present Illness: 62 year old female with a history of HTN, ESRD on peritoneal dialysis (prior failed kidney transplants), admitted with syncope, found to be anemic. The patient is known to me from a prior admission for symptomatic anemia. Her work up was consistent with anemia of CKD and recommended to start on erythropoietin supplementation. The patient notes to being started on erythropoietin and notes to improvement in her hgb. She has had bleeding per rectum with all her bowel movements for several weeks. She had a colonoscopy earlier this month at [facility] which revealed bleeding internal external hemorrhoids. She is awaiting 2U PRBC transfusion. Past medical history: HTN, ESRD Past surgical history: kidney transplant Family history: Denies hematologic and oncologic problems Social history: Denies tobacco, alcohol, and illicit drug use. Allergies: NKA Review of systems: All remaining review of systems including HEENT, cardiovascular, respiratory, gastrointestinal, genitourinary, musculoskeletal, dermatologic, neurologic, and psychiatric are negative unless mentioned in the HPI. Past Patient History - Infectious Disease Hx of Infectious Diseases: None - Past Medical History & Family History Past Medical History?: Yes - Past Social History Alcohol: None Drugs: Denies - CARDIAC Hx Hypercholesterolemia: Yes Hx Hypertension: Yes - PULMONARY Hx Asthma: Yes Hx Pneumonia: Yes - NEUROLOGICAL Hx Neurological Disorder: No - HEENT Hx HEENT Problems: No - RENAL Hx Chronic Kidney Disease: Yes - ENDOCRINE/METABOLIC Hx Endocrine Disorders: No - HEMATOLOGICAL/ONCOLOGICAL Hx Anemia: Yes - INTEGUMENTARY Hx Dermatological Problems: No - MUSCULOSKELETAL/RHEUMATOLOGICAL Hx Musculoskeletal Disorders: Yes Hx Back Pain: Yes Hx Falls: Yes - GASTROINTESTINAL Hx Gastrointestinal Disorders: Yes - GENITOURINARY/GYNECOLOGICAL Hx Genitourinary Disorders: No - PSYCHIATRIC Hx Psychophysiologic Disorder: No Hx Substance Use: No - SURGICAL HISTORY Hx Cholecystectomy: Yes - ANESTHESIA Hx Anesthesia: Yes Hx Anesthesia Reactions: No Hx Malignant Hyperthermia: No Meds Allergies/Adverse Reactions: Allergies Allergy/AdvReac Type Severity Reaction Status Date / Time No Known Allergies Allergy Verified 08/11/17 17:40 Physical Exam - Head Exam Head Exam: ATRAUMATIC - Eye Exam Eye Exam: Normal appearance - ENT Exam ENT Exam: Mucous Membranes Dry - Respiratory Exam Respiratory Exam: NORMAL BREATHING PATTERN - Cardiovascular Exam Cardiovascular Exam: +S1, +S2 - GI/Abdominal Exam GI & Abdominal Exam: Normal Bowel Sounds - Neurological Exam Neurological exam: Oriented x3 - Psychiatric Exam Psychiatric exam: Normal Affect, Normal Mood - Skin Skin Exam: Warm Results - Vital Signs Recent Vital Signs: Last Vital Signs Temp 97 F L 11/06/17 12:07 Pulse 98 H 11/06/17 12:07 Resp 16 11/06/17 12:07 BP 132/88 11/06/17 12:07 Pulse Ox 100 11/06/17 16:45 - Labs Result Diagrams: 11/06/17 15:20 11/06/17 15:20 Labs: Laboratory Results - last 24 hr 11/06/17 11/06/17 15:20 15:20 WBC 16.5 H RBC 1.87 L Hgb 6.8 L D Hct 21.2 L MCV 113.3 H D MCH 36.3 H MCHC 32.1 L RDW 17.6 H Plt Count 314 MPV 8.5 Neut % (Auto) 68.1 Lymph % (Auto) 20.0 [place] % (Auto) 10.4 H Eos % (Auto) 0.7 Baso % (Auto) 0.8 Neut # (Auto) 11.2 H Lymph # (Auto) 3.3 [place] # (Auto) 1.7 H Eos # (Auto) 0.1 Baso # (Auto) 0.1 Sodium 135 Potassium 4.4 Chloride 91 L Carbon Dioxide 27 Anion Gap 21 H BUN 61 H Creatinine 10.9 H* Est GFR ( Amer) 4 Est GFR (Non-Af Amer) 4 Random Glucose 100 Calcium 10.6 H Total Bilirubin 0.7 AST 61 H D ALT 53 H Alkaline Phosphatase 79 Troponin I 0.0140 Total Protein 6.9 Albumin 3.3 L Globulin 3.6 Albumin/Globulin Ratio 0.9 L Assessment & Plan (1) Anemia Assessment and Plan: Chronic GI blood loss from internal and external hemorrhoids by colonoscopy at [facility] anemia of CKD; will give a dose of Procrit for 2U PRBC unlikely hemolysis; elevated retic likely from erythropoietin supplementation; will add haptoglobin. macrocytic anemia - normal folate/b12 ? myelodysplastic syndrome; outpatient bone marrow if pt continues to drop H/H despite controlling for bleeding and erythropoietin supplementation. Status: Acute (2) Leukocytosis Assessment and Plan: on steroids likely reactive Thank you for this interesting consult. Status: Acute
[2017-11-06] MEDS ORDERED: Albuterol HFA 90 mcg/actuation (8 g) IH PRN (20:59)
[2017-11-06] MEDS: Promethazine DM 6.25 mg-15 mg/5 ml Syrup PO PRN (21:55)
[2017-11-06 22:14] LABS: FOLATE > 20.0 ng/mL
[2017-11-07 08:13] LABS: BASO # 0.1 K/uL (0.0-0.2); BASO % 0.6 % (0.0-2.0); EOS # 0.2 K/uL (0.0-0.7); EOS % 1.3 % (0.0-4.0); LYMPH % 23.4 % (20.0-40.0); MEAN CORPUSCULAR HEMOGLOBIN 34.2 pg (27.0-31.0); MEAN CORPUSCULAR HGB CONC 33.8 g/dL (33.0-37.0); MEAN PLATELET VOLUME 8.1 fl (7.2-11.7); MONO # 1.2 K/uL (0.0-0.8); MONO % 9.5 % (0.0-10.0); NEUT # 8.5 K/uL (1.8-7.0); NEUT % 65.2 % (50.0-75.0); NRBC % 0.2 % (0.0-0.0); RBC 2.72 Mil/uL (3.80-5.20); RED CELL DISTRIBUTION WIDTH 22.6 % (11.5-14.5)
[2017-11-07 08:20] LABS: HEMOGLOBIN 9.3 g/dL (12.0-16.0); MEAN CELL VOLUME 101.1 fl (81.0-99.0)
[2017-11-07] MEDS ORDERED: Sevelamer Carb 0.8 gm/Packet PO SCH (09:00)
[2017-11-07] MEDS: Hydrocortisone 2.5% (Rectal) CREAM PR PRN ×2 (09:11→17:05)
[2017-11-07] MEDS: Omega-3-Acid Ethyl Esters 1 GM Cap PO SCH ×2 (09:14→17:06)
[2017-11-07] MEDS: Magnesium Oxide 400 mg Tab UD PO SCH (09:14)
[2017-11-07] MEDS: Promethazine DM 6.25 mg-15 mg/5 ml Syrup PO PRN ×2 (09:15→21:17)
[2017-11-07] MEDS: Multivitamin With Minerals Tab PO SCH (09:15)
[2017-11-07] MEDS ORDERED: Chlorhexidine Gluconate 1 APPL/PKT TP ONE ×2 (09:22→17:14)
--- NOTE | 2017-11-07 09:48 | CP.PCM.CON ---
History of Present Illness - History of Present Illness History of Present Illness: Patient is a 62 years of age female I was called to see her for further evaluation of her peritoneal dialysis and kidney problem. Patient known with end stage renal disease on maintenance peritoneal dialysis in the past 3 years and she has been doing dialysis at home using [facility] dialysis machine. Prior to peritoneal dialysis she has kidney transplant which lasted about 17 years. And she is back on peritoneal dialysis was about 3 years Patient admitted with near syncope , she was found to have very low hemoglobin she required 2 units of packed cell transfusion overnight and patient performing repetitive toenail dialysis overnight and draining at the present. The fluid is clear no abdominal pain no nausea no vomiting Past medical history: HTN, ESRD Past surgical history: kidney transplant Family history: Denies hematologic and oncologic problems Social history: Denies tobacco, alcohol, and illicit drug use. Review of Systems - Constitutional Constitutional: As Per HPI. absent: Chills, Night Sweats, Weight Loss - EENT Eyes: As Per HPI Nose/Mouth/Throat: absent: Nasal Congestion, Nasal Discharge - Cardiovascular Cardiovascular: absent: Chest Pain, Dyspnea, Edema, Palpitations, Pedal Edema - Gastrointestinal Gastrointestinal: absent: Abdominal Pain, Coffee Ground Emesis, Diarrhea - Genitourinary Genitourinary: absent: Nocturia - Musculoskeletal Musculoskeletal: Muscle Weakness. absent: Arthralgias - Neurological Neurological: absent: Abnormal Gait, Confusion, Headaches, Loss of Vision - Hematologic/Lymphatic Hematologic: absent: Easy Bleeding Past Patient History - Infectious Disease Hx of Infectious Diseases: None - Past Medical History & Family History Past Medical History?: Yes - Past Social History Alcohol: None Drugs: Denies - CARDIAC Hx Hypercholesterolemia: Yes Hx Hypertension: Yes - PULMONARY Hx Asthma: Yes Hx Pneumonia: Yes - NEUROLOGICAL Hx Neurological Disorder: No - HEENT Hx HEENT Problems: No - RENAL Hx Chronic Kidney Disease: Yes - ENDOCRINE/METABOLIC Hx Endocrine Disorders: No - HEMATOLOGICAL/ONCOLOGICAL Hx Anemia: Yes - INTEGUMENTARY Hx Dermatological Problems: No - MUSCULOSKELETAL/RHEUMATOLOGICAL Hx Musculoskeletal Disorders: Yes Hx Back Pain: Yes Hx Falls: Yes - GASTROINTESTINAL Hx Gastrointestinal Disorders: Yes - GENITOURINARY/GYNECOLOGICAL Hx Genitourinary Disorders: No - PSYCHIATRIC Hx Psychophysiologic Disorder: No Hx Substance Use: No - SURGICAL HISTORY Hx Cholecystectomy: Yes - ANESTHESIA Hx Anesthesia: Yes Hx Anesthesia Reactions: No Hx Malignant Hyperthermia: No Meds Allergies/Adverse Reactions: Allergies Allergy/AdvReac Type Severity Reaction Status Date / Time No Known Allergies Allergy Verified 08/11/17 17:40 - Medications Medications: Current Medications Albuterol (Ventolin Hfa 90 Mcg/Actuation (8 G)) 2 puff IH Q6 PRN PRN Reason: Shortness of Breath Atorvastatin Calcium (Lipitor) 10 mg PO Q48H [facility] Last Admin: 11/06/17 21:55 Dose: 10 mg Epoetin Collin (Procrit) 20,000 unit SC ONCE ONE Stop: 11/07/17 10:01 Last Admin: 11/07/17 09:18 Dose: 20,000 unit Home Med (Paricalcitol [Zemplar]) 1 mcg PO Q48H JAQUELIN Hydrocortisone (Anusol-Hc) 25 mg HI BID JAQUELIN Last Admin: 11/07/17 09:16 Dose: 25 mg Hydrocortisone (Cortef) 5 mg PO QPM JAQUELIN Hydrocortisone (Cortef) 10 mg PO QAM [facility] Last Admin: 11/07/17 09:14 Dose: 10 mg Hydrocortisone (Anusol-Hc) 1 applic HI BID PRN PRN Reason: Hemorrhoids Last Admin: 11/07/17 09:11 Dose: 1 unit Magnesium Oxide (Mag-Ox) 400 mg PO DAILY [facility] Last Admin: 11/07/17 09:14 Dose: 400 mg Multivitamins/Minerals (Therapeutic-M Tab) 1 tab PO DAILY [facility] Last Admin: 11/07/17 09:15 Dose: 1 tab Ksuoq-0-Uwek Ethyl Esters (Lovaza) 2 gm PO BID [facility] Last Admin: 11/07/17 09:14 Dose: 2 gm Promethazine HCl/Dextromethorphan (Phenergan Dm Syrup) 5 ml PO Q8 PRN PRN Reason: Cough Last Admin: 11/07/17 09:15 Dose: 5 ml Propranolol HCl (Inderal La) 60 mg PO QPM JAQUELIN Sertraline HCl (Zoloft) 50 mg PO HS [facility] Last Admin: 11/06/17 21:55 Dose: 50 mg Sevelamer Carbonate (Renvela) 1.6 gm PO TID [facility] Last Admin: 11/07/17 09:15 Dose: 1.6 gm Physical Exam - Constitutional Appears: No Acute Distress - Eye Exam Eye Exam: absent: Conjunctival injection - ENT Exam ENT Exam: Mucous Membranes Moist - Neck Exam Neck exam: Negative for: Lymphadenopathy - Respiratory Exam Respiratory Exam: NORMAL BREATHING PATTERN. absent: Chest Wall Tenderness - Cardiovascular Exam Cardiovascular Exam: REGULAR RHYTHM. absent: Gallop, JVD, Rubs - Extremities Exam Extremities exam: Negative for: calf tenderness - Back Exam Back exam: absent: CVA tenderness (L), CVA tenderness (R) - Neurological Exam Neurological exam: Alert - Skin Skin Exam: Intact Results - Vital Signs Recent Vital Signs: Last Vital Signs Temp 98.2 F 11/07/17 07:48 Pulse 101 H 11/07/17 07:48 Resp 20 11/07/17 07:48 BP 137/77 11/07/17 07:48 Pulse Ox 97 11/07/17 07:48 - Labs Result Diagrams: 11/07/17 08:07 11/06/17 15:20 Labs: Laboratory Results - last 24 hr 11/06/17 11/06/17 11/06/17 15:20 15:20 16:30 WBC 16.5 H RBC 1.87 L Hgb 6.8 L D Hct 21.2 L MCV 113.3 H D MCH 36.3 H MCHC 32.1 L RDW 17.6 H Plt Count 314 MPV 8.5 Neut % (Auto) 68.1 Lymph % (Auto) 20.0 [place] % (Auto) 10.4 H Eos % (Auto) 0.7 Baso % (Auto) 0.8 Neut # (Auto) 11.2 H Lymph # (Auto) 3.3 [place] # (Auto) 1.7 H Eos # (Auto) 0.1 Baso # (Auto) 0.1 Retic Count Sodium 135 Potassium 4.4 Chloride 91 L Carbon Dioxide 27 Anion Gap 21 H BUN 61 H Creatinine 10.9 H* Est GFR ( Amer) 4 Est GFR (Non-Af Amer) 4 Random Glucose 100 Calcium 10.6 H Ferritin Total Bilirubin 0.7 AST 61 H D ALT 53 H Alkaline Phosphatase 79 Troponin I 0.0140 Total Protein 6.9 Albumin 3.3 L Globulin 3.6 Albumin/Globulin Ratio 0.9 L Vitamin B12 Folate Blood Type O POSITIVE Antibody Screen Negative Crossmatch See Detail BBK History Checked Patient has bt 11/06/17 11/06/17 11/07/17 16:30 16:30 08:07 WBC 13.0 H RBC 2.72 L Hgb 9.3 L D Hct 27.5 L MCV 101.1 H D MCH 34.2 H MCHC 33.8 RDW 22.6 H Plt Count 302 MPV 8.1 Neut % (Auto) 65.2 Lymph % (Auto) 23.4 [place] % (Auto) 9.5 Eos % (Auto) 1.3 Baso % (Auto) 0.6 Neut # (Auto) 8.5 H Lymph # (Auto) 3.0 [place] # (Auto) 1.2 H Eos # (Auto) 0.2 Baso # (Auto) 0.1 Retic Count 8.1 H D Sodium Potassium Chloride Carbon Dioxide Anion Gap BUN Creatinine Est GFR ( Amer) Est GFR (Non-Af Amer) Random Glucose Calcium Ferritin 2670.0 H Total Bilirubin AST ALT Alkaline Phosphatase Troponin I Total Protein Albumin Globulin Albumin/Globulin Ratio Vitamin B12 > 1000 H Folate > 20.0 Blood Type Antibody Screen Crossmatch BBK History Checked Assessment & Plan (1) Leukocytosis Status: Acute (2) Anemia Status: Acute (3) CKD (chronic kidney disease) requiring chronic dialysis Assessment and Plan: Patient with end stage renal disease on maintenance peritoneal dialysis. Patient was using [facility] dialysis machine cycler. Patient doing care on PD she brought the machine also should put 2 bag 5000 mL in each overnight the fluid clear continue PD Check serum phosphorus and PTH if the patient continued to stay. Patient presented with severe anemia she was transfused Previous kidney transplant Continue monitoring Status: Acute (4) GI bleed Status: Acute
[2017-11-07] MEDS ORDERED: Epoetin Alfa 20000 UNIT/ML (RENAL DOSE) SC ONE (10:00)
--- NOTE | 2017-11-07 15:50 | HP ---
HISTORY OF PRESENT ILLNESS: Ms. Roberts is a 62-year-old female who was admitted via the Emergency Room because of near syncopal episode and has severe anemia. She was brought in because she felt like passing out. She has a past medical history of severe anemia, hypertension, and end-stage renal disease for which she is on peritoneal dialysis. She also has been transplanted with a kidney years ago for the kidney failed. She also has hypertension and recently had a colonoscopy that showed bleeding internal hemorrhoids and some external hemorrhoids at [facility]. FAMILY HISTORY: Revealing for a sister who recently from brain aneurysm. SOCIAL HISTORY: She does not drink or smoke and lives at home with her and does not use drugs. REVIEW OF SYSTEMS: Essentially remarkable for chronic cough, generalized weakness, and back pains. PHYSICAL EXAMINATION: GENERAL: The patient is alert and oriented, appears to be very weak. VITAL SIGNS: Blood pressure 137/77 with the pulse of 101, respiratory rate of 20. She is febrile. O2 sat is 97% on room air. SKIN: Shows fair turgor. HEENT: Pupils are equal and reactive to light and accommodation with ____ pale conjunctivae. Mouth shows fair hygiene. JVP flat. LUNGS: Clear. HEART: Regular. No murmurs or gallop. BREASTS: Normal. ABDOMEN: Soft, distended, but no edema site is appreciated. No organomegaly. EXTREMITIES: Shows no edema or cyanosis. CENTRAL NERVOUS SYSTEM: Except for unsteadiness of gait is essentially unremarkable. LABORATORY DATA ON ADMISSION: Hemoglobin 6.8, WBC 16.5, and platelet count 314,000. Sodium 135, potassium 4.4, BUN 61, creatinine 10.9, and serum calcium 10.6. Chest x-ray shows no acute cardiopulmonary pathology. IMPRESSION: Severe symptomatic anemia with near syncopal episode, end-stage renal disease, and leukocytosis, probably secondary to steroids. History of hypertension. PLAN: Plan is transfusion of packed red blood cells. Monitor hemoglobin. History of internal hemorrhoids, which is probably the cause of anemia, with superimposed end-stage renal disease: The plan also would be Hematology evaluation and Nephrology evaluation. If hemoglobin remains stable, we will probably discharge the patient in the a.m. and have a followup with j2ee programmer for further therapy of internal hemorrhoids. Case was discussed with the patient and her . Yao Chamberlain MD [facility] # [id number]
[2017-11-07] MEDS ORDERED: Propranolol 60 mg ER Cap PO SCH (18:00)
[2017-11-07 18:13] LABS: BASO # 0.1 K/uL (0.0-0.2); EOS # 0.1 K/uL (0.0-0.7); EOS % 0.5 % (0.0-4.0); HEMOGLOBIN 9.1 g/dL (12.0-16.0); LYMPH % 20.4 % (20.0-40.0); MEAN CELL VOLUME 103.1 fl (81.0-99.0); MEAN CORPUSCULAR HEMOGLOBIN 34.1 pg (27.0-31.0); MEAN CORPUSCULAR HGB CONC 33.1 g/dL (33.0-37.0); MEAN PLATELET VOLUME 8.3 fl (7.2-11.7); MONO # 1.4 K/uL (0.0-0.8); MONO % 9.5 % (0.0-10.0); NEUT % 68.6 % (50.0-75.0); NRBC % 0.1 % (0.0-0.0); RBC 2.67 Mil/uL (3.80-5.20); RED CELL DISTRIBUTION WIDTH 22.6 % (11.5-14.5); WHITE BLOOD COUNT 14.6 K/uL (4.8-10.8)
[2017-11-08 07:50] VITALS: BP 132/78; PULSE 95; RESP 20; TEMP 98
[2017-11-08] MEDS: Sevelamer Carb 0.8 gm/Packet PO SCH ×2 (09:11→09:25)
[2017-11-08] MEDS: Magnesium Oxide 400 mg Tab UD PO SCH (09:13)
[2017-11-08] MEDS: Omega-3-Acid Ethyl Esters 1 GM Cap PO SCH (09:13)
[2017-11-08] MEDS: Multivitamin With Minerals Tab PO SCH (09:15)
--- NOTE | 2017-11-08 10:34 | CP.PCM.PN ---
Subjective - Date & Time of Evaluation Date of Evaluation: 11/08/17 Time of Evaluation: 10:31 - Subjective Subjective: renal follow up note seen on PD, last fill + denies any pain or sob PD went uneventful overnight PE: ao times 3 vitals reviewed HEENT normal op moist s1s2 present no resp distress abd soft, fluid + PD catheter present no edema skin normal AO Times3 no FND normal mood PE:ESRD/anemia/htn/syncope continue pd, at home regimen, she brought in her machine from home anemia: procrit given, hem on board, unlikely to be hemolysis per them continue binders,renvela. check a phos level hypercalcemia: monitor. recommend checking spep, i ordered it Objective - Vital Signs/Intake and Output Vital Signs (last 24 hours): Temp Pulse Resp BP Pulse Ox 98.0 F 95 H 20 132/78 97 11/08/17 07:48 11/08/17 07:48 11/08/17 07:48 11/08/17 07:48 11/08/17 07:48 - Medications Medications: Current Medications Albuterol (Ventolin Hfa 90 Mcg/Actuation (8 G)) 2 puff IH Q6 PRN PRN Reason: Shortness of Breath Atorvastatin Calcium (Lipitor) 10 mg PO Q48H [facility] Last Admin: 11/06/17 21:55 Dose: 10 mg Epoetin Collin (Procrit) 20,000 unit SC MWF [facility] Home Med (Paricalcitol [Zemplar]) 1 mcg PO Q48H [facility] Hydrocortisone (Anusol-Hc) 25 mg [place] BID [facility] Last Admin: 11/08/17 09:15 Dose: 25 mg Hydrocortisone (Cortef) 5 mg PO QPM [facility] Last Admin: 11/07/17 17:05 Dose: 5 mg Hydrocortisone (Cortef) 10 mg PO QAM [facility] Last Admin: 11/08/17 09:13 Dose: 10 mg Hydrocortisone (Anusol-Hc) 1 applic [place] BID PRN PRN Reason: Hemorrhoids Last Admin: 11/07/17 17:05 Dose: 1 unit Magnesium Oxide (Mag-Ox) 400 mg PO DAILY [facility] Last Admin: 11/08/17 09:13 Dose: 400 mg Multivitamins/Minerals (Therapeutic-M Tab) 1 tab PO DAILY [facility] Last Admin: 11/08/17 09:15 Dose: 1 tab Tyipm-2-Hawk Ethyl Esters (Lovaza) 2 gm PO BID JAQUELIN Last Admin: 11/08/17 09:13 Dose: 2 gm Promethazine HCl/Dextromethorphan (Phenergan Dm Syrup) 5 ml PO Q8 PRN PRN Reason: Cough Last Admin: 11/07/17 21:17 Dose: 5 ml Propranolol HCl (Inderal La) 60 mg PO QPM JAQUELIN Last Admin: 11/07/17 17:06 Dose: 60 mg Sertraline HCl (Zoloft) 50 mg PO HS JAQUELIN Last Admin: 11/07/17 21:17 Dose: 50 mg Sevelamer Carbonate (Renvela) 1.6 gm PO TID JAQUELIN Last Admin: 11/08/17 09:25 Dose: Not Given - Labs Labs: 11/07/17 18:01 11/06/17 15:20
[2017-11-08 10:37] LABS: BASO # 0.1 K/uL (0.0-0.2); BASO % 0.9 % (0.0-2.0); EOS # 0.2 K/uL (0.0-0.7); EOS % 1.2 % (0.0-4.0); HEMOGLOBIN 9.9 g/dL (12.0-16.0); LYMPH % 24.1 % (20.0-40.0); MEAN CELL VOLUME 101.2 fl (81.0-99.0); MEAN CORPUSCULAR HEMOGLOBIN 34.5 pg (27.0-31.0); MEAN CORPUSCULAR HGB CONC 34.1 g/dL (33.0-37.0); MEAN PLATELET VOLUME 8.6 fl (7.2-11.7); MONO # 1.2 K/uL (0.0-0.8); MONO % 9.8 % (0.0-10.0); NEUT # 7.9 K/uL (1.8-7.0); NRBC % 0.2 % (0.0-0.0); RBC 2.85 Mil/uL (3.80-5.20); RED CELL DISTRIBUTION WIDTH 21.6 % (11.5-14.5); WHITE BLOOD COUNT 12.3 K/uL (4.8-10.8)
--- NOTE | 2017-11-08 10:48 | CP.PCM.DIS ---
Provider - Provider Date of Admission: 11/06/17 16:41 Attending physician: Yao Chamberlain MD Time Spent in preparation of Discharge (in minutes): 35 Diagnosis - Discharge Diagnosis (1) Leukocytosis Status: Acute (2) Anemia Status: Acute (3) CKD (chronic kidney disease) requiring chronic dialysis Status: Acute (4) GI bleed Status: Acute (5) Hypertension Status: Acute Hospital Course - Lab Results Lab Results: Most Recent Lab Values WBC 14.6 K/uL (4.8-10.8) H 11/07/17 18:01 RBC 2.67 Mil/uL (3.80-5.20) L 11/07/17 18:01 Hgb 9.1 g/dL (12.0-16.0) L 11/07/17 18:01 Hct 27.6 % (34.0-47.0) L 11/07/17 18:01 MCV 103.1 fl (81.0-99.0) H D 11/07/17 18:01 MCH 34.1 pg (27.0-31.0) H 11/07/17 18:01 MCHC 33.1 g/dL (33.0-37.0) 11/07/17 18:01 RDW 22.6 % (11.5-14.5) H 11/07/17 18:01 Plt Count 296 K/uL (130-400) 11/07/17 18:01 MPV 8.3 fl (7.2-11.7) 11/07/17 18:01 Neut % (Auto) 68.6 % (50.0-75.0) 11/07/17 18:01 Lymph % (Auto) 20.4 % (20.0-40.0) 11/07/17 18:01 [place] % (Auto) 9.5 % (0.0-10.0) 11/07/17 18:01 Eos % (Auto) 0.5 % (0.0-4.0) 11/07/17 18:01 Baso % (Auto) 1.0 % (0.0-2.0) 11/07/17 18:01 Neut # (Auto) 10.0 K/uL (1.8-7.0) H 11/07/17 18:01 Lymph # (Auto) 3.0 K/uL (1.0-4.3) 11/07/17 18:01 [place] # (Auto) 1.4 K/uL (0.0-0.8) H 11/07/17 18:01 Eos # (Auto) 0.1 K/uL (0.0-0.7) 11/07/17 18:01 Baso # (Auto) 0.1 K/uL (0.0-0.2) 11/07/17 18:01 Retic Count 8.1 % (0.5-1.5) H D 11/06/17 16:30 Haptoglobin 395 mg/dL (43-212) H 11/07/17 08:07 Sodium 135 mmol/l (132-148) 11/06/17 15:20 Potassium 4.4 MMOL/L (3.6-5.0) 11/06/17 15:20 Chloride 91 mmol/L (98-107) L 11/06/17 15:20 Carbon Dioxide 27 mmol/L (22-30) 11/06/17 15:20 Anion Gap 21 (10-20) H 11/06/17 15:20 BUN 61 mg/dl (7-17) H 11/06/17 15:20 Creatinine 10.9 mg/dl (0.7-1.2) H* 11/06/17 15:20 Est GFR ( Amer) 4 11/06/17 15:20 Est GFR (Non-Af Amer) 4 11/06/17 15:20 Random Glucose 100 mg/dL (65-105) 11/06/17 15:20 Calcium 10.6 mg/dL (8.4-10.2) H 11/06/17 15:20 Ferritin 2670.0 ng/Ml (11.1-264.0) H 11/06/17 16:30 Total Bilirubin 0.7 mg/dl (0.2-1.3) 11/06/17 15:20 AST 61 U/L (14-36) H D 11/06/17 15:20 ALT 53 U/L (9-52) H 11/06/17 15:20 Alkaline Phosphatase 79 U/L (38-126) 11/06/17 15:20 Troponin I 0.0140 ng/mL (0.00-0.120) 11/06/17 15:20 Total Protein 6.9 G/DL (6.3-8.2) 11/06/17 15:20 Albumin 3.3 g/dL (3.5-5.0) L 11/06/17 15:20 Globulin 3.6 gm/dL (2.2-3.9) 11/06/17 15:20 Albumin/Globulin Ratio 0.9 (1.0-2.1) L 11/06/17 15:20 Vitamin B12 > 1000 pg/mL (239-931) H 11/06/17 16:30 Folate > 20.0 ng/mL 11/06/17 16:30 Stool Occult Blood Negative (NEGATIVE) 11/07/17 18:00 Blood Type O POSITIVE 11/06/17 16:30 Antibody Screen Negative 11/06/17 16:30 Crossmatch See Detail 11/06/17 16:30 BBK History Checked Patient has bt 11/06/17 16:30 - Hospital Course Hospital Course: NO RECURRENCE OF GI BLEED HB STABLE Discharge Exam - Head Exam Head Exam: ATRAUMATIC - Eye Exam Eye Exam: EOMI, Normal appearance, PERRL Pupil Exam: NORMAL ACCOMODATION, PERRL - GI/Abdominal Exam GI & Abdominal Exam: Normal Bowel Sounds - Rectal Exam Rectal Exam: NORMAL INSPECTION - Neurological Exam Neurological exam: Alert, CN II-XII Intact, Normal Gait, Oriented x3, Reflexes Normal - Psychiatric Exam Psychiatric exam: Normal Affect, Normal Mood - Skin Skin Exam: Dry, Intact, Normal Color, Warm Discharge Plan - Follow Up Plan Condition: GOOD Disposition: HOME/ ROUTINE Patient education suggested?: Yes Additional Instructions: DISCHARGE TODAY ON FEOSOL TID FOLLOW UP WITH DAYCARE DIRECTOR-DR ULLOA FOR MANAGEMENT OF GI BLEED RETURN TO ER IF BLEEDING WORSENS/PERSISTS
[2017-11-08 10:54] LABS: ALB/GLOB RATIO 0.9 (1.0-2.1); ALBUMIN 3.4 g/dL (3.5-5.0); CALCIUM 10.3 mg/dL (8.4-10.2)
--- NOTE | 2017-11-08 18:44 | CP.PCM.PN ---
Subjective - Date & Time of Evaluation Date of Evaluation: 11/07/17 Time of Evaluation: 20:10 - Subjective Subjective: Feeling better after transfusion Objective - Vital Signs/Intake and Output Vital Signs (last 24 hours): Temp Pulse Resp BP Pulse Ox 98.0 F 95 H 20 132/78 97 11/08/17 07:48 11/08/17 07:48 11/08/17 07:48 11/08/17 07:48 11/08/17 07:48 - Labs Labs: 11/08/17 09:48 11/08/17 09:48 - Head Exam Head Exam: ATRAUMATIC - Eye Exam Eye Exam: Normal appearance - ENT Exam ENT Exam: Mucous Membranes Dry - Respiratory Exam Respiratory Exam: NORMAL BREATHING PATTERN - Cardiovascular Exam Cardiovascular Exam: +S1, +S2 - GI/Abdominal Exam GI & Abdominal Exam: Normal Bowel Sounds Assessment and Plan (1) Anemia Assessment & Plan: renal disease and GI blood loss EPO supplementation s/p PRBC transfusion outpatient EPO supplementation Status: Acute (2) Leukocytosis Status: Acute
--- NOTE | 2017-11-08 18:46 | CP.PCM.PN ---
Subjective - Date & Time of Evaluation Date of Evaluation: 11/08/17 Time of Evaluation: 10:30 - Subjective Subjective: No complaints Objective - Vital Signs/Intake and Output Vital Signs (last 24 hours): Temp Pulse Resp BP Pulse Ox 98.0 F 95 H 20 132/78 97 11/08/17 07:48 11/08/17 07:48 11/08/17 07:48 11/08/17 07:48 11/08/17 07:48 - Labs Labs: 11/08/17 09:48 11/08/17 09:48 - Head Exam Head Exam: ATRAUMATIC - Eye Exam Eye Exam: Normal appearance - ENT Exam ENT Exam: Mucous Membranes Dry - Respiratory Exam Respiratory Exam: NORMAL BREATHING PATTERN - Cardiovascular Exam Cardiovascular Exam: +S1, +S2 - GI/Abdominal Exam GI & Abdominal Exam: Normal Bowel Sounds Assessment and Plan (1) Anemia Assessment & Plan: anemia of renal disease and GI blood loss from hemorrhoids EPO per renal SPEP negative in 08/2017 outpatient EPO Status: Acute (2) Leukocytosis Status: Acute
[2017-11-09 23:48] VITALS: O2SAT 100
[2017-11-10] MEDS ORDERED: Epoetin Alfa 20000 UNIT/ML (RENAL DOSE) SC SCH (09:00)
== END 2017-11-08 12:45 | disposition home or self-care (01) | DRG 393 ==
LOC: H.ER 12:03 → H.ERHOLD 16:41 → H.MEDSURG1 20:30
PROVIDERS: ADMIT Internal Medicine Pulmonary Disease; ATTEND Internal Medicine Pulmonary Disease
PROC: 30233N1 Transfusion of Nonautologous Red Blood Cells into Peripheral Vein, Percutaneous Approach (ICD-10-PCS; principal; 2017-11-06)
DX: K64.8 Other hemorrhoids (principal); N18.6 End stage renal disease; I12.0 Hypertensive chronic kidney disease with stage 5 chronic kidney disease or end stage renal disease; K92.2 Gastrointestinal hemorrhage, unspecified; Z94.0 Kidney transplant status; D50.0 Iron deficiency anemia secondary to blood loss (chronic); K64.4 Residual hemorrhoidal skin tags; D63.1 Anemia in chronic kidney disease; D72.828 Other elevated white blood cell count; J45.909 Unspecified asthma, uncomplicated; E78.00 Pure hypercholesterolemia, unspecified; Z99.2 Dependence on renal dialysis; Z90.49 Acquired absence of other specified parts of digestive tract; Z87.01 Personal history of pneumonia (recurrent)